=== PATIENT | female | born 1960 | race Two or more races ===

== ENCOUNTER 2017-04-01 02:29 | Inpatient (IN) | payer MEDICAID ==
[2017-04-01] VITALS (22 sets, daily range): BP systolic 98–184; BP diastolic 65–126
[~2017-04-01] VITALS: Ht 172.7 cm; Wt 129.3 kg
[2017-04-01] MEDS ORDERED: levETIRAcetam 500mg vial IV ONE ×2 (02:36→05:53)
[2017-04-01 02:44] LABS: BASOPHILS % (AUTO) 0.7 % (0.0-2.0); EOSINOPHILS % (AUTO) 0.5 % (0.0-3.0); LYMPHOCYTES % (AUTO) 37.5 % (20.0-45.0); MEAN CORPUSCULAR HEMOGLOBIN 29.2 PG (27.0-31.0); MEAN CORPUSCULAR HGB CONC 31.9 G/DL (32.0-36.0); MEAN CORPUSCULAR VOLUME 91 FL (80-99); MEAN PLATELET VOLUME 8.7 FL (6.5-10.1); MONOCYTES % (AUTO) 4.4 % (1.0-10.0); NEUTROPHILS % (AUTO) 56.9 % (45.0-75.0); PLATELET COUNT 250 K/UL (150-450); RED BLOOD COUNT 5.39 M/UL (4.20-5.40); RED CELL DISTRIBUTION WIDTH 13.1 % (11.6-14.8); WHITE BLOOD COUNT 15.3 K/UL (4.8-10.8)
[2017-04-01] MEDS ORDERED: levETIRAcetam 500 MG in D5W 110 ML IV ONE (02:45)
[2017-04-01] MEDS ORDERED: LORazepam Inj 2mg/ml 1ml IV ONE ×2 (02:45→05:15)
[2017-04-01 02:58] LABS: ANION GAP 8 mmol/L (5-15); CALCIUM 8.9 MG/DL (8.5-10.1); CARBON DIOXIDE 31 MMOL/L (21-32); CHLORIDE 101 MMOL/L (98-107); CREATININE 1.1 MG/DL (0.55-1.30); GLOMERULAR FILTRATION RATE 51.2 mL/min (>60); POTASSIUM 3.3 MMOL/L (3.5-5.1); SODIUM 140 MMOL/L (136-145)
[2017-04-01 03:02] LABS: ALANINE AMINOTRANSFERASE 42 U/L (12-78); ASPARTATE AMINO TRANSFERASE 40 U/L (15-37); TOTAL PROTEIN 8.5 G/DL (6.4-8.2)
[2017-04-01 03:07] LABS: ALCOHOL < 3 mg/dL
[2017-04-01 03:09] LABS: APPEARANCE,URINE CLEAR; KETONES,URINE NEGATIVE (NEGATIVE); LEUKOCYTE ESTERASE ,URINE 1+ (NEGATIVE); NITRITE,URINE NEGATIVE (NEGATIVE); PH,URINE 7 (4.5-8.0); PROTEIN,URINE 4+ (NEGATIVE); UROBILINOGEN,URINE NORMAL MG/DL (0.0-1.0)
[2017-04-01 03:10] LABS: BACTERIA,URINE MODERATE /HPF; SQUAMOUS EPITHELIAL CELL,UR FEW /LPF (NONE/OCC)
[2017-04-01 03:11] LABS: MUCUS,URINE MODERATE /LPF (NONE/OCC)
[2017-04-01] MEDS ORDERED: Labetalol 5mg/ml 20ml vial IV ONE (03:43)
[2017-04-01] MEDS ORDERED: cefTRIAXone 1 GM in NS 55 ML IVPB ONE (03:45)
[2017-04-01] MEDS ORDERED: niCARdipine HCl 200 ML IV SCH (03:45)
--- NOTE | 2017-04-01 04:23 | Emergency Room Report ---
History of Present Illness General Chief Complaint: Seizure Source: Family Member, EMS Present Illness HPI This is a 56-year-old female with a history of CVA and hypertension. Initially she presents as a seizure. Per EMS she has a history of seizure before. And noted to have a seizure activity tonight. Family called 911. Initially, there was no family member to give her better detail history. Patient unable to give a history because of her condition. I finally spoke to her daughter on the phone. She said that her mom had a history of hemorrhagic stroke said it high blood pressure before. She doesn't take her blood pressure medication as indicated. Today, she left the house around 3:45 PM. Her mom had been complaining of feeling weak and not feeling well. She was sitting on the couch talking normally. Her daughter came home around 1:45 AM. She called her mom but there was no response. When she opened the door she fell her mom on the floor by the couch. There was vomit on the couch and her mom and incontinence of urine. She was having at the mouth. She was groaning and there was some twitching. No obvious tonic-clonic seizure activity. Allergies: Coded Allergies: PENICILLINS (Verified Allergy, Unknown, 04/01/17) Patient History Past Medical History: see triage record, old chart reviewed, HTN, CAD Past Surgical History: CABG Pertinent Family History: none Social History: Denies: smoking Last Menstrual Period: unknown Now: No Immunizations: other Reviewed Nursing Documentation: PMH: Agreed, PSxH: Agreed Nursing Documentation-PMH Hx Cardiac Problems: Yes - Stroke Hx Hypertension: Yes Hx Asthma: Yes Hx Diabetes: Yes Hx Seizures: Yes Review of Systems Constitutional: Reports: weakness Eye: Denies: eye pain, blurred vision ENT: Denies: ear pain, nose congestion, throat swelling Respiratory: Denies: cough, shortness of breath Cardiovascular: Denies: chest pain, palpitations Gastrointestinal: Denies: abdominal pain, diarrhea, nausea, vomiting Musculoskeletal: Denies: back pain, joint pain Skin: Denies: rash Neurological: Reports: headache Endocrine: Denies: increased thirst, increased urine Hematologic/Lymphatic: Denies: easy bruising All Other Systems: negative except mentioned in HPI Physical Exam Vital Signs Date Time Temp Pulse Resp B/P (MAP) Pulse Ox O2 Delivery O2 Flow Rate FiO2 04/01/17 02:20 97.5 128 11 192/145 99 Non-Rebreather 15.0 vitals with tachycardia and severe hypertension. Sp02 EP Interpretation: abnormal General Appearance: moderate distress Head: normocephalic, atraumatic Eyes: bilateral eye PERRL, bilateral eye EOMI ENT: normal pharynx Neck: full range of motion, supple, no meningismus Respiratory: chest non-tender, lungs clear, normal breath sounds Cardiovascular #1: regular rate, rhythm, no murmur, tachycardia Gastrointestinal: normal bowel sounds, non tender, no mass, no organomegaly, no bruit, non-distended Musculoskeletal: back normal Neurologic: other - No response to painful stimuli. Patient has some twitching of the left nasal labial folds. Skin: warm/dry Procedures Critical Care Time Critical Care Time Critical care is mandated in this patient who presented with acute encephalopathy most likely se CVA in or intracranial bleed.. Patient require my urgent intervention to attenuate the risks of metabolic collapse which may lead to cardiovascular collapse and . Critical care time is 35 minutes excluding any reportable procedure. Critical care time included evaluation, multiple reevaluation, looking at old charts, interpreting laboratory and diagnostic data, discussing case with patient and family and consultants, and charting. Medical Decision Making Diagnostic Impression: Primary Impression: Hypertensive emergency Additional Impressions: Acute encephalopathy Morbid obesity with BMI of 45.0-49.9, adult UTI (urinary tract infection) Qualified Codes: N30.00 - Acute cystitis without hematuria Proteinuria Qualified Codes: R80.9 - Proteinuria, unspecified CVA (cerebral vascular accident) Qualified Codes: I63.9 - Cerebral infarction, unspecified ER Course Patient presents with acute encephalopathy. She may have had a CVA. Questionable UTI. We'll go ahead and treat for that. No evidence of CHF. No obvious bleed on the CT scan. She is outside of the window for TPA. Last known time she was 3:45 PM. This per her outside the window for TPA. I gave her a dose of Ativan for possible seizure. Positive of Keppra. Her daughter she had "seizure" before. Blood pressure also improved to 175/54. At this moment in time, is protecting her airway. I see no need for intubation at this point. She'll be admitted to the ICU for further management. She is unstable for transfer. Laboratory Tests Test 04/01/17 02:30 04/01/17 02:50 White Blood Count 15.3 K/UL (4.8-10.8) H Red Blood Count 5.39 M/UL (4.20-5.40) Hemoglobin 15.7 G/DL (12.0-16.0) Hematocrit 49.3 % (37.0-47.0) H Mean Corpuscular Volume 91 FL (80-99) Mean Corpuscular Hemoglobin 29.2 PG (27.0-31.0) Mean Corpuscular Hemoglobin Concent 31.9 G/DL (32.0-36.0) L Red Cell Distribution Width 13.1 % (11.6-14.8) Platelet Count 250 K/UL (150-450) Mean Platelet Volume 8.7 FL (6.5-10.1) Neutrophils (%) (Auto) 56.9 % (45.0-75.0) Lymphocytes (%) (Auto) 37.5 % (20.0-45.0) Monocytes (%) (Auto) 4.4 % (1.0-10.0) Eosinophils (%) (Auto) 0.5 % (0.0-3.0) Basophils (%) (Auto) 0.7 % (0.0-2.0) Sodium Level 140 MMOL/L (136-145) Potassium Level 3.3 MMOL/L (3.5-5.1) L Chloride Level 101 MMOL/L (98-107) Carbon Dioxide Level 31 MMOL/L (21-32) Anion Gap 8 mmol/L (5-15) Blood Urea Nitrogen 20 mg/dL (7-18) H Creatinine 1.1 MG/DL (0.55-1.30) Estimat Glomerular Filtration Rate 51.2 mL/min (>60) Glucose Level 276 MG/DL (74-106) H Calcium Level 8.9 MG/DL (8.5-10.1) Total Bilirubin 0.6 MG/DL (0.2-1.0) Aspartate Amino Transf (AST/SGOT) 40 U/L (15-37) H Alanine Aminotransferase (ALT/SGPT) 42 U/L (12-78) Alkaline Phosphatase 158 U/L (46-116) H Total Protein 8.5 G/DL (6.4-8.2) H Albumin 4.2 G/DL (3.4-5.0) Globulin 4.3 g/dL Albumin/Globulin Ratio 1.0 (1.0-2.7) Serum Alcohol < 3 mg/dL Urine Color Pale yellow Urine Appearance Clear Urine pH 7 (4.5-8.0) Urine Specific [place] 1.010 (1.005-1.035) Urine Protein 4+ (NEGATIVE) H Urine Glucose (UA) 3+ (NEGATIVE) H Urine Ketones Negative (NEGATIVE) Urine Occult Blood 2+ (NEGATIVE) H Urine Nitrite Negative (NEGATIVE) Urine Bilirubin Negative (NEGATIVE) Urine Urobilinogen Normal MG/DL (0.0-1.0) Urine Leukocyte Esterase 1+ (NEGATIVE) H Urine RBC 2-4 /HPF (0 - 2) H Urine WBC 5-10 /HPF (0 - 2) H Urine Squamous Epithelial Cells Few /LPF (NONE/OCC) Urine Bacteria Moderate /HPF (NONE) H Urine Mucus Moderate /LPF (NONE/OCC) H Urine Opiates Screen Negative (NEGATIVE) Urine Barbiturates Screen Negative (NEGATIVE) Phencyclidine (PCP) Screen Negative (NEGATIVE) Urine Amphetamines Screen Negative (NEGATIVE) Urine Benzodiazepines Screen Negative (NEGATIVE) Urine Cocaine Screen Negative (NEGATIVE) Urine Marijuana (THC) Screen Positive (NEGATIVE) H Lab Results Impression labs with elevated WBC EKG Diagnostic Results Rate: tachycardiac Rhythm: NSR ST Segments: other - NSST changes Rhythm Strip Diag. Results Rhythm Strip Time: 04:21 EP Interpretation: yes Rate: 92 Rhythm: NSR, no PVC's Chest X-Ray Diagnostic Results Chest X-Ray Diagnostic Results : Chest X-Ray Ordered: Yes # of Views/Limited/Complete: 1 View Indication: Shortness of Breath EP Interpretation: Yes Interpretation: no consolidation, no effusion, no pneumothorax, no acute cardiopulmonary disease Impression: No acute disease CT/MRI/US Diagnostic Results CT/MRI/US Diagnostic Results : Imaging Test Ordered: CT head Impression Read by radiologist. no ICH. Moderate hypodensity Last Vital Signs Date Time Temp Pulse Resp B/P (MAP) Pulse Ox O2 Delivery O2 Flow Rate FiO2 04/01/17 04:01 97.5 117 16 163/114 100 Non-Rebreather 15.0 Status: improved Disposition: ADMITTED INPATIENT Condition: Critical Referrals: NON PHYSICIAN (PCP) MANAS ALICEA M.D. Apr 01, 2017 04:23
[2017-04-01] MEDS ORDERED: NKM (05:34)
[2017-04-01] MEDS ORDERED: levETIRAcetam 500mg/NS100ml 100 ML IVPB ONE (06:00)
[2017-04-01] MEDS ORDERED: TENORMIN25 MG ORAL (08:16)
[2017-04-01] MEDS ORDERED: LISINOPRIL20 MG ORAL (08:16)
[2017-04-01] MEDS ORDERED: BENAZEPRIL-HCT1 EAC1 ORAL (08:16)
[2017-04-01] MEDS ORDERED: NORVASC5 MG ORAL (08:16)
--- NOTE | 2017-04-01 10:19 | Diagnostic Imaging Report ---
Indications: Altered metal status Technique: Spiral acquisitions obtained through the brain. Angled axial and coronal 5 x 5 mm slices were reconstructed. Total dose length product 1404 mGycm. CTDI vol(s) 70 mGy. Dose reduction achieved using automated exposure control Comparison: None Findings: No acute intracranial hemorrhage or edema. No mass effect or midline shift. Normal size ventricles and extra-axial CSF spaces. There is considerable periventricular deep white matter low-attenuation as well there is a low-attenuation within the bilateral basal ganglia regions. Multiple bilateral basal ganglia lacunar infarcts are demonstrated. Intact calvarium. Visualized orbits are unremarkable. There is minimal sphenoid sinus disease. Impression: Negative for acute intracranial bleed or mass effect Fairly extensive periventricular and basal ganglia deep white matter low-attenuation. Most likely on the basis of chronic microvascular ischemic changes. However, given patient's age and absence of significant cerebral volume loss, the possibility of demyelinating disease should also be considered Old bilateral basal ganglia lacunar infarcts This agrees with the preliminary interpretation provided overnight by [facility]erad[facility] service. The CT scanner at [facility] is accredited by the [employer] and the scans are performed using protocols designed to limit radiation exposure to as low as reasonably achievable to attain images of sufficient resolution adequate for diagnostic evaluation.
--- NOTE | 2017-04-01 10:59 | Consultation ---
Consult Note Consult Note asked to eval for BP management This is a 56-year-old female with a history of CVA and hypertension. Initially she presents as a seizure. Per EMS she has a history of seizure before. And noted to have a seizure activity tonight. Family called 911. Initially, there was no family member to give her better detail history. Patient unable to give a history because of her condition. I finally spoke to her daughter on the phone. She said that her mom had a history of hemorrhagic stroke said it high blood pressure before. She doesn't take her blood pressure medication as indicated. Today, she left the house around 3:45 PM. Her mom had been complaining of feeling weak and not feeling well. She was sitting on the couch talking normally. Her daughter came home around 1:45 AM. She called her mom but there was no response. When she opened the door she fell her mom on the floor by the couch. There was vomit on the couch and her mom and incontinence of urine. She was having at the mouth. She was groaning and there was some twitching. No obvious tonic-clonic seizure activity. Allergies: Coded Allergies: PENICILLINS (Verified Allergy, Unknown, 04/01/17) Past Medical History: see triage record, old chart reviewed, HTN, CAD Past Surgical History: CABG Hx Cardiac Problems: Yes - Stroke Hx Hypertension: Yes Hx Asthma: Yes Hx Diabetes: Yes Hx Seizures: Yes Assessment/Plan Hypertensive emergency Acute encephalopathy Morbid obesity with BMI of 45.0-49.9, adult UTI (urinary tract infection) Proteinuria CVA (cerebral vascular accident) in view of acute stroke, do not want BP lower than 150 syst for next few days NGT PRN BP Meds per orders discussed with CED MCKINNEY Apr 01, 2017 10:59
[2017-04-01] MEDS ORDERED: Enalaprilat 2.5mg/2ml Inj IV ONE (11:00)
[2017-04-01] MEDS ORDERED: Metoprolol Tartrate 12.5mg TAB NG ONE (11:30)
--- NOTE | 2017-04-01 11:31 | Diagnostic Imaging Report ---
Indication: Altered level of consciousness, history of multiple prior CVA and cerebral hemorrhages Technique: sagittal T1 fast spin echo, axial T1 and T2 FLAIR, axial T2 FS, T2* GRE, axial diffusion weighted images, coronal T2 FLAIR, coronal spoiled gradient, post contrast axial and coronal T1 FLAIR images. ADC and exponential ADC maps generated. Note that due to patient body habitus, the "old" head coil needed to be utilized Comparison: Reference made to CT scan performed earlier the same day Findings: Motion artifact degrades numerous sequences. There is a tiny focus of restricted diffusion within the right parietal deep white matter, and equivocally within the right frontal deep white matter. Questionable restricted diffusion in the left parasagittal parietal lobe also noted. There are questionable foci of restricted diffusion also noted in the [place]. In the medial parasagittal left parietal lobe, there is low GRE signal as well as low signal on other sequences corresponding area of low attenuation seen on prior CT scan, likely an area of encephalomalacia with old hemorrhage. There are other scattered foci of susceptibility artifact within the midbrain, bilateral basal ganglia, and the left hemisphere. Susceptibility artifact in the subependymal region adjacent to the atrium the right lateral ventricle There are old bilateral basal ganglia lacunar infarcts, as well as an old lacunar infarct within the junction of the right brachium pontis and cerebellar hemisphere. High T2 signal abnormality are seen within the kay[place] and midbrain which are probably related to prior ischemia. Confluent deep white matter areas of high T2 signal are noted, corresponding to the low attenuation areas seen on CT. No mass effect nor midline shift. Considerable motion artifact degrades the postcontrast images. No gross contrast enhancing lesion is demonstrated. Normal size ventricles and extra axial CSF spaces. Visualized orbits and sinuses are unremarkable. The hippocampi are grossly symmetrical bilaterally. The vascular flow voids are preserved. Impression: Limited exam, as described, due to motion artifact, inability to use newer head coil Focus of restricted diffusion in the right parietal deep white matter, consistent with acute infarct. Less striking foci of restricted diffusion in the right frontal lobe, left parasagittal parietal lobe, right basal ganglia, and the kay[place] and midbrain. Possibly artifactual, but could represent multiple small acute lacunar infarcts. If so, distribution indicates embolic phenomena of cardiac origin Area of encephalomalacia in the left parasagittal parietal lobe, with associated susceptibility artifact consistent with old hemorrhagic infarct Subependymal and parenchymal area of susceptibility artifact adjacent to the atrium in the right lateral ventricle, consistent with old hemorrhage Multiple scattered punctate foci of susceptibility artifact, consistent with old microhemorrhages.. Main differential considerations are chronic hypertensive encephalopathy with microbleeds, versus amyloid angiopathy Cerebral volume loss, presumed age-related Extensive bilateral periventricular high T2 deep white matter abnormality, consistent with chronic ischemic change, less likely demyelinating disease Findings discussed by phone previously with Dr. Thomas
--- NOTE | 2017-04-01 11:49 | Neurology Progress Note ---
Objective Physical Exam Last Vital Signs Date Time Temp Pulse Resp B/P (MAP) Pulse Ox O2 Delivery O2 Flow Rate FiO2 04/01/17 11:39 109 149/97 04/01/17 10:00 20 100 Nasal Cannula 3.0 04/01/17 08:00 99.7 Laboratory Tests Test 04/01/17 02:30 04/01/17 02:50 White Blood Count 15.3 K/UL (4.8-10.8) H Red Blood Count 5.39 M/UL (4.20-5.40) Hemoglobin 15.7 G/DL (12.0-16.0) Hematocrit 49.3 % (37.0-47.0) H Mean Corpuscular Volume 91 FL (80-99) Mean Corpuscular Hemoglobin 29.2 PG (27.0-31.0) Mean Corpuscular Hemoglobin Concent 31.9 G/DL (32.0-36.0) L Red Cell Distribution Width 13.1 % (11.6-14.8) Platelet Count 250 K/UL (150-450) Mean Platelet Volume 8.7 FL (6.5-10.1) Neutrophils (%) (Auto) 56.9 % (45.0-75.0) Lymphocytes (%) (Auto) 37.5 % (20.0-45.0) Monocytes (%) (Auto) 4.4 % (1.0-10.0) Eosinophils (%) (Auto) 0.5 % (0.0-3.0) Basophils (%) (Auto) 0.7 % (0.0-2.0) Sodium Level 140 MMOL/L (136-145) Potassium Level 3.3 MMOL/L (3.5-5.1) L Chloride Level 101 MMOL/L (98-107) Carbon Dioxide Level 31 MMOL/L (21-32) Anion Gap 8 mmol/L (5-15) Blood Urea Nitrogen 20 mg/dL (7-18) H Creatinine 1.1 MG/DL (0.55-1.30) Estimat Glomerular Filtration Rate 51.2 mL/min (>60) Glucose Level 276 MG/DL (74-106) H Calcium Level 8.9 MG/DL (8.5-10.1) Total Bilirubin 0.6 MG/DL (0.2-1.0) Aspartate Amino Transf (AST/SGOT) 40 U/L (15-37) H Alanine Aminotransferase (ALT/SGPT) 42 U/L (12-78) Alkaline Phosphatase 158 U/L (46-116) H Total Protein 8.5 G/DL (6.4-8.2) H Albumin 4.2 G/DL (3.4-5.0) Globulin 4.3 g/dL Albumin/Globulin Ratio 1.0 (1.0-2.7) Serum Alcohol < 3 mg/dL Urine Color Pale yellow Urine Appearance Clear Urine pH 7 (4.5-8.0) Urine Specific [place] 1.010 (1.005-1.035) Urine Protein 4+ (NEGATIVE) H Urine Glucose (UA) 3+ (NEGATIVE) H Urine Ketones Negative (NEGATIVE) Urine Occult Blood 2+ (NEGATIVE) H Urine Nitrite Negative (NEGATIVE) Urine Bilirubin Negative (NEGATIVE) Urine Urobilinogen Normal MG/DL (0.0-1.0) Urine Leukocyte Esterase 1+ (NEGATIVE) H Urine RBC 2-4 /HPF (0 - 2) H Urine WBC 5-10 /HPF (0 - 2) H Urine Squamous Epithelial Cells Few /LPF (NONE/OCC) Urine Bacteria Moderate /HPF (NONE) H Urine Mucus Moderate /LPF (NONE/OCC) H Urine Opiates Screen Negative (NEGATIVE) Urine Barbiturates Screen Negative (NEGATIVE) Phencyclidine (PCP) Screen Negative (NEGATIVE) Urine Amphetamines Screen Negative (NEGATIVE) Urine Benzodiazepines Screen Negative (NEGATIVE) Urine Cocaine Screen Negative (NEGATIVE) Urine Marijuana (THC) Screen Positive (NEGATIVE) H Impression/Recommendations Problems: (1) acute ischemic R MCA lacunar stroke (2) Recurrent seizures (3) s/p old multiple hemorrhagic/ischemic strokes, probably HTN angiopathy (4) UTI (urinary tract infection) (5) Proteinuria (6) Hypertensive emergency Status: unchanged Recommendations # [id number] TWIN LEIVA Apr 01, 2017 11:49
[2017-04-01] MEDS ORDERED: Enalaprilat 2.5mg/2ml Inj IV SCH (12:00)
[2017-04-01] MEDS: Enalaprilat 2.5mg/2ml Inj IV SCH ×2 (12:00→18:00)
[2017-04-01] MEDS: levETIRAcetam 500mg/NS100ml 100 ML IVPB SCH ×2 (12:52→20:50)
--- NOTE | 2017-04-01 14:30 | Diagnostic Imaging Report ---
Indication: SOB Technique: One view of the chest Comparison: none Findings: Patient is rotated to the right. The aorta is tortuous and ectatic. There are are surgical clips in the left aorta pulmonary window region. There are median sternotomy sutures. No definite acute infiltrates, effusions, or congestion Impression: No definite acute process
--- NOTE | 2017-04-01 16:00 | Consultation ---
DATE OF CONSULTATION: 04/01/2017 NEUROLOGICAL CONSULTATION CONSULTING PHYSICIAN: Jose M Thomas M.D. REFERRING PHYSICIAN: Mark Hawkins M.D. HISTORY OF PRESENT ILLNESS: This is a 56-year-old female, seen in neurological consultation to evaluate new onset of unresponsiveness. According to the family as well as from medical records known that as of yesterday, she was doing fairly well. Last time, she was seen at around 3 or 4 o'clock p.m. She was doing fine except that she had some weakness attributed to tiredness from moving in to a new housing. When the family came by at around 1:40 a.m., the patient was found to be on the ground unresponsive. There was evidence of vomiting and urinary incontinence. There was foaming from her mouth. She was groaning and moaning and there was some twitchings. The patient was unresponsive. Ambulance was requested. Blood pressure in the field 245/166, heart rate of 129, respirations 18, and blood sugar 130. EKG with sinus tachycardia. She was described being able to withdraw to pain. No visible trauma noted. Family stated that they were trying to contact her since this morning, they came to visit and found her on the floor. Following admission to emergency room, her blood pressure still remained 192/145, temperature 97.5, heart rate of 128, and pulse oximetry 99% on non-rebreather. There was no response to painful stimulation. There was some twitching in the left nasolabial fold noted. Stat CT of the brain was obtained revealing no evidence of acute intracranial abnormalities. There was evidence of multiple old lacunar strokes. No midline shift. No hemorrhage. Her laboratory work included a CBC study with WBC 15.3. Chemistry panel, potassium 3.3, BUN of 20, and blood sugar 276. AST 40, alkaline phosphatase 158, and total protein 8.5. Toxicology panel positive for marijuana. Urinalysis, 5 to 10 WBCs, 3+ glucose, and 4+ protein. Since admission till present, there were no further paroxysmal events. The patient displayed slight improvement becoming somewhat more responsive to voice and being able to move her arms and legs. PAST MEDICAL HISTORY: Known that the patient has a history of at least five strokes within last five years, two of them hemorrhagic. She is treated for hypertension and diabetes type 2. She has a history of bronchial asthma. She is status post CABG with coronary artery disease. She had a single episode of seizure following acute stroke three years ago. No anticonvulsants were given. MRI of the brain without contrast was obtained on stat basis and this revealed what seems small lacunar acute infarct in the right parietal and questionable left parietal with multiple areas of old strokes including hemorrhagic, but no midline shift. No acute hemorrhage is noted. This was seen on preliminary assessment. MEDICATIONS: Treatment prior to admission included amlodipine, atenolol, benazepril, and lisinopril. ALLERGIES: Penicillin. FAMILY HISTORY: Noncontributory. SOCIAL HISTORY: Lives with her daughter, but described as being able to take care of herself and provide with herself with all activities of daily living. Family is unaware of any significant side effects from previous strokes. PHYSICAL EXAMINATION: GENERAL: A well-developed, moderately obese female, who is found to be lying in bed, at times spontaneously moving. VITAL SIGNS: Her blood pressure 171/60, temperature 99.7, and heart rate of 106. HEENT: Head normocephalic. There is no evidence of trauma. Eyes, ears, and throat are clear. NECK: Neck is slightly rigid. MUSCULOSKELETAL EXAMINATION: Unremarkable. There is no deformities. Peripheral pulses 1+ and symmetric. MENTAL STATUS: On loud voice or stimulation, she mumbles, but still not able to follow command. CRANIAL NERVE II: Pupils both responding to light and accommodation. There is a slight left eye exotropia, but range of motion on horizontal basis normal. Fundi poorly visualized. CRANIAL NERVE V: Normal corneal responses. CRANIAL NERVE VII: Minor facial asymmetry with drooping on the right. CRANIAL NERVES IX THROUGH XII: Tongue is in midline. Symmetric palate elevation. Slightly reduced gag. MOTOR EXAMINATION: Able to move both arms holding momentarily against the gravity. Less movement noted in both lower extremities, but withdrawing properly both legs. Deep tendon reflexes depressed bilaterally. Plantar response is mute. No pathological responses noted. SENSORY EXAM: No response to pin stimulation. IMPRESSION: 1. Acute lacunar ischemic right parietal stroke. 2. Status post multiple hemorrhagic/ischemic strokes. 3. Ischemic cerebrovascular disease, rule out hypertensive angiopathy. 4. Persistent unresponsiveness, probably postictal state. 5. Hypertensive emergency with acute encephalopathy. 6. Urinary tract infection. 7. Coronary artery disease, status post coronary artery bypass graft. 8. Diabetes type 2. DISCUSSION: The patient had abrupt onset of loss of consciousness most likely representing generalized seizure event triggered by acute lacunar stroke. In addition, the patient presents with a hypertensive emergency contributing to persistent unresponsiveness. The patient on admission was loaded with 1 g of Keppra. We will continue with 500 mg b.i.d. We will obtain electroencephalogram to rule out any ongoing seizure activity. We will maintain systolic blood pressure above 120 and below 160. Blood sugar should be well controlled to keep it below 115. Get PT, OT, and speech therapy to assess bedside swallow study. Meanwhile, keep NPO maintaining IV fluids. I discussed the patient's status with the family. One of the members of the family became extremely agitated (loudly shouting). Family is advised to maintain appropriate quietness at the bedside. They will help to hold the patient becoming agitated. We will follow with you. Thank you for allowing me to see this interesting patient in neurological consultation. Jose M Thomas M.D. DR: MUKUND JOB#: [id number] CC:
--- NOTE | 2017-04-01 17:45 | History and Physical Report ---
DATE OF ADMISSION: 04/01/2017 TIME SEEN: I saw the patient at around 7:25 a.m. at ICU. HISTORY OF PRESENT ILLNESS: I had already given orders prior to my visit to nurse as well. The patient is basically lethargic, however, does respond to noxious stimuli, groans, and moans. The history is obtained from the sister and the daughter here at the waiting room. According to the daughter, she left home at 3 a.m. and came back at 1 and found her on the floor. According to her, the patient was not completely unconscious, was mumbling and groaning, and was lying on her right side with some bruises on the right arm. According to again the daughter, the patient had not lost consciousness but was unable to get up. She has called paramedics to come here. There was noted again a bruise on the right side due to the fall. Again, the patient was mumbling. The patient according to the daughter has long history of drug abuse and history of noncompliance with her blood pressure medication. The patient had four strokes in the past and according to the daughter, she only had one time seizure and she was not put on any seizure medication per daughter. The patient admitted to ICU. The patient had originally elevated blood pressure, however, the blood pressure had improved and at the ICU, the blood pressure was 145 systolic. PAST MEDICAL HISTORY: Questionable seizure disorder, the daughter disputes and according to her, this only happened one time. History of CVA x4, history of drug abuse, history of hypertension, and history of diabetes. PAST SURGICAL HISTORY: Lung surgery. ALLERGIES: To penicillin. MEDICATIONS: Cannot tell us the name of the medications she takes and she is also noncompliant according to the daughter with her medications. SOCIAL HISTORY: The patient has history of smoking and history of drug abuse. FAMILY HISTORY: There is history of diabetes and hypertension in the family. REVIEW OF SYSTEMS: Unable to obtain. The patient is nonverbal, is mumbling, and responsive only to noxious stimuli and only mumbles. PHYSICAL EXAMINATION: VITAL SIGNS: Temperature 97.5, pulse was 125, and blood pressure 151/102. HEENT: Pupils are reactive to light. CHEST: Clear to auscultation. CARDIOVASCULAR: Tachycardic. No murmurs. GASTROINTESTINAL: Soft. Positive bowel sounds. Abdomen is nontender. There is also a mid chest wall scar which was due to the lung surgery that she had long time ago. EXTREMITIES: No edema. NEUROLOGIC: Reflexes on both sides, only responds to deep noxious stimuli, mumbles, and groans. Does not follow neurological exam. LABORATORY DATA: Sodium 140, potassium 3.3, chloride 101, BUN of 20, creatinine 1.1, glucose of 276. WBC of 15.3, hemoglobin 15.3, and platelets 215,000. ASSESSMENT: Altered mental status and lethargy, rule out another stroke. PLAN: Dr. Thomas was already notified by the ER doctor as well as by me to see the patient. I have also asked Dr. Jiménez, Dr. Watts, Dr. Montelongo, Dr. Horton, and Dr. Hawkins to see the patient for the above-mentioned diagnoses and treatment to rule out any infectious etiology causing leukocytosis as well as brining down her blood pressure and heart rate as well as bringing down her blood sugar. Consultation has been called. Dr. Jiménez also will help for replacement of the potassium. The patient is kept n.p.o. at this point. Dr. Thomas has been made aware as mentioned of this patient's admission by the ER doctor as well as by me. Mark Hawkins M.D. DR: NOEL JOB#: [id number] CC:
[2017-04-01 19:10] LABS: BAND NEUTROPHILS % (MANUAL) 2 % (0-8); BASOPHILS % (MANUAL) 0 % (0-2); EOSINOPHILS % (MANUAL) 2 % (0-3); LYMPHOCYTES % (MANUAL) 22 % (20-45); NEUTROPHILS % (MANUAL) 66 % (45-75); PLATELET ESTIMATE ADEQUATE; PLATELET MORPHOLOGY NORMAL; TOTAL CELLS COUNTED 100
[2017-04-01 19:11] LABS: PATH BLOOD SMEAR/OMC SENT TO PATHOLOGIST
--- NOTE | 2017-04-01 19:18 | General Progress Note ---
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 (4) Morbid obesity with BMI of 45.0-49.9, adult ICD Codes: E66.01 - Morbid (severe) obesity due to excess calories; Z68.42 - Body mass index (BMI) 45.0-49.9, adult SNOMED: 539614324, [id number] Assessment/Plan continue ICU care add Novolog sliding scale ac / hs Subjective ROS Limited/Unobtainable: Yes Allergies: Coded Allergies: PENICILLINS (Verified Allergy, Unknown, 04/01/17) Subjective events noted interval notes reviewed Objective Last 24 Hour Vital Signs Date Time Temp Pulse Resp B/P (MAP) Pulse Ox O2 Delivery O2 Flow Rate FiO2 04/01/17 19:00 106 19 120/80 100 Nasal Cannula 3.0 04/01/17 18:00 103 20 141/100 100 Nasal Cannula 3.0 04/01/17 18:00 141/100 04/01/17 17:00 114 20 124/89 100 Nasal Cannula 3.0 04/01/17 16:00 110 04/01/17 16:00 98.9 107 19 134/95 100 Nasal Cannula 3.0 04/01/17 15:00 104 20 143/94 100 Nasal Cannula 3.0 04/01/17 14:00 103 20 146/96 100 Nasal Cannula 3.0 04/01/17 13:00 104 20 156/103 100 Nasal Cannula 3.0 04/01/17 12:00 99.0 105 20 158/99 100 Nasal Cannula 3.0 04/01/17 12:00 105 04/01/17 11:39 109 149/97 04/01/17 11:23 171/60 04/01/17 11:00 104 20 157/97 100 Nasal Cannula 3.0 04/01/17 10:00 106 20 151/91 100 Nasal Cannula 3.0 04/01/17 09:00 119 20 149/86 100 Nasal Cannula 3.0 04/01/17 08:00 99.7 106 19 107/72 Nasal Cannula 2.0 04/01/17 08:00 112 12/6/17 07:00 113 20 145/97 100 Nasal Cannula 3.0 04/01/17 06:30 98.2 116 22 130/95 100 Nasal Cannula 3.0 04/01/17 06:01 97.5 130 22 145/81 100 Nasal Cannula 3.0 04/01/17 06:00 97.5 130 22 145/81 100 Nasal Cannula 3.0 04/01/17 04:52 97.5 125 22 151/102 100 Non-Rebreather 15.0 04/01/17 04:01 97.5 117 16 163/114 100 Non-Rebreather 15.0 04/01/17 03:59 163/114 04/01/17 03:13 97.5 126 12 184/126 98 Non-Rebreather 15.0 04/01/17 02:53 128 11 Non-Rebreather 15.0 04/01/17 02:20 97.5 128 11 192/145 99 Non-Rebreather 15.0 Intake and Output 04/01/17 04/02/17 19:00 07:00 Intake Total 100 ml Output Total 770 ml Balance -670 ml Intake IV Total 100 ml Output Urine Total 770 ml Laboratory Tests 04/01/17 02:30: White Blood Count 15.3H, Red Blood Count 5.39, Hemoglobin 15.7, Hematocrit 49.3H , Mean Corpuscular Volume 91, Mean Corpuscular Hemoglobin 29.2, Mean Corpuscular Hemoglobin Concent 31.9L, Red Cell Distribution Width 13.1, Platelet Count 250, Mean Platelet Volume 8.7, Neutrophils (%) (Auto) 56.9, Lymphocytes (%) (Auto) 37.5, Monocytes (%) (Auto) 4.4, Eosinophils (%) (Auto) 0.5, Basophils (%) (Auto) 0.7, Differential Total Cells Counted 100, Neutrophils % (Manual) 66, Lymphocytes % (Manual) 22, Monocytes % (Manual) 8, Eosinophils % (Manual) 2, Basophils % (Manual) 0, Band Neutrophils 2, Platelet Estimate Adequate, Platelet Morphology Normal, Red Blood Cell Morphology Normal , Sodium Level 140, Potassium Level 3.3L, Chloride Level 101, Carbon Dioxide Level 31, Anion Gap 8, Blood Urea Nitrogen 20H, Creatinine 1.1, Estimat Glomerular Filtration Rate 51.2, Glucose Level 276H, Calcium Level 8.9, Total Bilirubin 0.6, Aspartate Amino Transf (AST/SGOT) 40H, Alanine Aminotransferase ( ALT/SGPT) 42, Alkaline Phosphatase 158H, Total Protein 8.5H, Albumin 4.2, Globulin 4.3, Albumin/Globulin Ratio 1.0, Serum Alcohol < 3 04/01/17 02:50: Urine Color Pale yellow, Urine Appearance Clear, Urine pH 7, Urine Specific [place] 1.010, Urine Protein 4+H, Urine Glucose (UA) 3+H, Urine Ketones Negative , Urine Occult Blood 2+H, Urine Nitrite Negative, Urine Bilirubin Negative, Urine Urobilinogen Normal, Urine Leukocyte Esterase 1+H, Urine RBC 2-4H, Urine WBC 5-10H, Urine Squamous Epithelial Cells Few, Urine Bacteria ModerateH, Urine Mucus ModerateH, Urine Opiates Screen Negative, Urine Barbiturates Screen Negative, Phencyclidine (PCP) Screen Negative, Urine Amphetamines Screen Negative, Urine Benzodiazepines Screen Negative, Urine Cocaine Screen Negative, Urine Marijuana (THC) Screen PositiveH Height (Feet): 5 Height (Inches): 8.00 Weight (Pounds): 300 General Appearance: lethargic Neck: normal alignment Cardiovascular: normal rate Respiratory/Chest: lungs clear Abdomen: normal bowel sounds Edema: 1+ Arm (L), 1+ Arm (R), 1+ Leg (L), 1+ Leg (R), 1+ Pedal (L), 1+ Pedal ( R), 1+ Generalized Objective Current Medications Medications (Trade) Dose Ordered Sig/Svetlana Route PRN Reason Start Time Stop Time Status Last Admin Dose Admin Acetaminophen (Tylenol) 650 mg Q4H PRN ORAL Mild Pain/Temp > 100.5 04/01/17 07:00 05/01/17 06:59 Ceftriaxone Sodium 1 gm/ Dextrose 55 ml @ 110 mls/hr Q24H IVPB 04/02/17 08:15 04/09/17 08:14 Enalaprilat (Vasotec) 2.5 mg EVERY 6 HOURS IV 04/01/17 12:00 05/01/17 11:59 Famotidine (Pepcid I.v.) 20 mg Q12HR IVP 04/01/17 21:00 05/01/17 20:59 Levetiracetam 100 ml @ 400 mls/hr Q12HR IVPB 04/01/17 12:30 05/01/17 12:29 04/01/17 12:52 Metoprolol Tartrate (Lopressor) 12.5 mg Q12HR NG 04/01/17 21:00 05/01/17 20:59 Item Value Date Time Bedside Blood Glucose 129 mg/dl H 04/01/17 1630 Bedside Blood Glucose 109 mg/dl 04/01/17 1130 MANAS JARAMILLO Apr 01, 2017 19:18
--- NOTE | 2017-04-01 20:15 | Consultation ---
DATE OF CONSULTATION: 04/01/2017 INFECTIOUS DISEASES CONSULTATION PRIMARY ATTENDING: Mark Hawkins M.D. REASON FOR CONSULTATION: Leukocytosis and systemic inflammatory response syndrome. HISTORY OF PRESENT ILLNESS: A 56-year-old female admitted this morning. She was found unconscious on the floor near the bed last night. She had a seizure activity at the time of admission and suspected to have a stroke, leukocytosis, and tachycardia. PAST MEDICAL HISTORY: Significant for diabetes mellitus for many years. The patient had history of CVA five years ago that was hemorrhagic. She had good recovery of that CVA and have no symptoms except the slight memory loss. She has history of hypertension, morbid obesity, coronary artery disease and had history of coronary artery bypass. CURRENT MEDICATIONS: Getting famotidine, metoprolol, Keppra, Vasotec, Pepcid, and Tylenol. ALLERGIES: Allergic to penicillin, but got a dose of ceftriaxone in the ER and tolerated it. SOCIAL HISTORY: Lives at home. Single. She has one daughter, who is at bedside and provides the history. She has history of crack abuse that quit one year ago. Recent marijuana abuse. REVIEW OF SYSTEMS: Unobtainable, but according to nurse, she responds to noxious stimuli and removed NG tube. PHYSICAL EXAMINATION: VITAL SIGNS: Temperature 99.7 degrees, pulse 109, and blood pressure 149/97. GENERAL APPEARANCE: She is in no acute distress. HEAD AND NECK: She has O2 by nasal cannula. [place] conjunctiva. HEART: Tachycardic. LUNGS: Clear. ABDOMEN: Soft and nontender. EXTREMITIES: She has no edema. LABORATORY AND DIAGNOSTIC DATA: WBC 15.3, hemoglobin 15.7, hematocrit 49.3, and platelets 250. Sodium 140, potassium 3.3, chloride 101, bicarbonate 31, BUN 20, creatinine 1.1, and glucose 276. Alkaline phosphatase 158. Total protein is 8.5, elevated. Urine toxicology was positive for marijuana. MRI of the brain showed right parietal infarct that is acute and evidence of old infarct in left parietal area. IMPRESSION: 1. Systemic inflammatory response syndrome with leukocytosis and tachycardia most likely secondary to ischemic stroke. 2. Ischemic stroke in parietal area. 3. Diabetes mellitus. 4. Uncontrolled hypertension. 5. Obesity. 6. Coronary artery disease. RECOMMENDATION: We will continue with Rocephin to make sure the patient did not have any aspiration pneumonia. If remained stable, we will stop antibiotics soon. At the end of my exam, I thank Dr. Hawkins for involving me in the care of this patient. Yunior Mora M.D. DR: ePr JOB#: [id number] CC:
[2017-04-01] MEDS: Metoprolol Tartrate 12.5mg TAB NG SCH (20:51)
[2017-04-01] MEDS: NovoLOG Insulin Flexpen SUBQ SCH (20:52)
[2017-04-01] MEDS ORDERED: levETIRAcetam 500mg/NS100ml 100 ML IVPB SCH (21:00)
[2017-04-02] VITALS (16 sets, daily range): BP systolic 102–148; BP diastolic 57–106
[2017-04-02 05:09] LABS: BASOPHILS % (AUTO) 0.7 % (0.0-2.0); EOSINOPHILS % (AUTO) 0.1 % (0.0-3.0); LYMPHOCYTES % (AUTO) 23.4 % (20.0-45.0); MEAN CORPUSCULAR HEMOGLOBIN 28.8 PG (27.0-31.0); MEAN CORPUSCULAR VOLUME 90 FL (80-99); MONOCYTES % (AUTO) 6.6 % (1.0-10.0); NEUTROPHILS % (AUTO) 69.1 % (45.0-75.0); PLATELET COUNT 221 K/UL (150-450); RED BLOOD COUNT 5.21 M/UL (4.20-5.40); RED CELL DISTRIBUTION WIDTH 12.7 % (11.6-14.8); WHITE BLOOD COUNT 3.5 K/UL (4.8-10.8)
[2017-04-02] MEDS: Enalaprilat 2.5mg/2ml Inj IV SCH ×4 (06:00→18:00)
[2017-04-02 06:07] LABS: ALANINE AMINOTRANSFERASE 36 U/L (12-78); ALBUMIN/GLOBULIN RATIO 0.9 (1.0-2.7); ANION GAP 7 mmol/L (5-15); ASPARTATE AMINO TRANSFERASE 27 U/L (15-37); CALCIUM 8.9 MG/DL (8.5-10.1); CARBON DIOXIDE 28 MMOL/L (21-32); CHLORIDE 104 MMOL/L (98-107); CHOLESTEROL 191 MG/DL (< 200); CHOLESTEROL/HDL RATIO 3.7 (3.3-4.4); GLOMERULAR FILTRATION RATE 57.1 mL/min (>60); MAGNESIUM 1.7 MG/DL (1.8-2.4); PHOSPHORUS 2.6 MG/DL (2.5-4.9); POTASSIUM 3.5 MMOL/L (3.5-5.1); SODIUM 139 MMOL/L (136-145); THYROID STIMULATING HORMONE 0.402 uiU/mL (0.358-3.740); TOTAL PROTEIN 7.1 G/DL (6.4-8.2); URIC ACID 7.3 MG/DL (2.6-7.2)
[2017-04-02] MEDS: NovoLOG Insulin Flexpen SUBQ SCH ×4 (06:30→20:53)
[2017-04-02 06:53] LABS: HEMOGLOBIN A1C 7.1 % (4.3-6.0)
[2017-04-02 07:10] LABS: CRP QUANT 2.1 mg/dL (0.00-0.90)
[2017-04-02 07:12] LABS: AMMONIA 48 umol/L (11-32)
[2017-04-02] MEDS ORDERED: cefTRIAXone 1 GM in D5W 55 ML IVPB SCH (08:15)
--- NOTE | 2017-04-02 08:30 | Consultation ---
DATE OF CONSULTATION: 04/01/2017 HEMATOLOGY/ONCOLOGY CONSULTATION CONSULTING PHYSICIAN: Rikki Bañuelos M.D. REQUESTING PHYSICIAN: Mark Hawkins M.D. REASON FOR CONSULTATION: Evaluation of leukocytosis. IDENTIFYING DATA: Dear Dr. Hawkins, The patient is a 56-year-old female with a past medical history, which is significant for hypertension, history of at least five strokes in the past several years, hemorrhagic, history of bronchial asthma, history of CABG status post CAD, MRI has been completed and seems to be recurrent small lacunar artifact in the left parietal lobe assessment. The patient was noted to be unresponsive and has been seen by Neurology team and EEG has been ordered. The patient found on the ground unresponsive, ambulance requested. When she came in noted to be hypotensive, and currently blood pressure is better controlled. Due to her leukocytosis, hematology service was consulted. PAST MEDICAL HISTORY: Hemorrhagic stroke in the past, hypertension, CABG, and bronchial asthma. MEDICATIONS: Amlodipine, . ALLERGIES: Penicillin. FAMILY HISTORY: Noncontributory. SOCIAL HISTORY: Lives with her daughter. Family member reports the patient had prior stroke. REVIEW OF SYSTEMS: CONSULTATION: No fevers, chills, or night sweats. SKIN: No rashes, bumps, or itching. HEENT: No headache, hearing or vision changes. BREASTS: No lumps, pain, or discharge. PULMONARY: No cough, sputum, or shortness of breath. GASTROINTESTINAL: No nausea, vomiting, or diarrhea. GENITOURINARY: No dysuria, frequency, or urgency. MUSCULOSKELETAL: No joint swelling, muscle pain, or trauma. PHYSICAL EXAMINATION: VITAL SIGNS: Reviewed. GENERAL: No acute distress. PULMONARY: Decreased breath sounds. CARDIOVASCULAR: Regular rate. No S3 or S4. ABDOMEN: Soft and nontender. EXTREMITIES: There is 1+ edema. LABORATORY DATA: WBC of 15.3, hemoglobin 15.7, hematocrit , platelet count 250,000. ASSESSMENT AND RECOMMENDATIONS: 1. Leukocytosis, secondary to reactive process, concerning for potential infection versus reactive process potentially from an acute stroke. Continue to closely monitor. Peripheral smear to be obtained, rule out pathological issue. 2. Acute lacunar stroke, ischemic parietal stroke, has been seen by Neurology service. Continue to monitor. Getting PT, OT, and speech therapy. Bedside swallow evaluation as well as Keppra. 3. Hypertensive urgency. 4. Acute encephalopathy. 5. Urinary tract infection. 6. Coronary artery disease, status post coronary artery bypass graft. 7. Type 2 diabetes mellitus. 8. Cerebrovascular accident history in the past. Multiple strokes. Continue to closely monitor. Rikki Bañuelos M.D. DR: Lam JOB#: [id number] CC:
[2017-04-02] MEDS: Metoprolol Tartrate 12.5mg TAB NG SCH ×2 (09:00→20:52)
--- NOTE | 2017-04-02 09:05 | Infectious Diseases Prog Note ---
Assessment/Plan Assessment/Plan A; SIRS, leukocytosis resolved Acute CVA Seizure disorder DM type II CAD P; Discontinue Rocephin Observe off antibiotic Subjective ROS Limited/Unobtainable: No Constitutional: Reports: no symptoms Respiratory: Reports: no symptoms Gastrointestinal/Abdominal: Reports: no symptoms Genitourinary: Reports: no symptoms Neurologic: Reports: no symptoms Allergies: Coded Allergies: PENICILLINS (Verified Allergy, Unknown, 04/01/17) Objective Vital Signs Last 24 Hour Vital Signs Date Time Temp Pulse Resp B/P (MAP) Pulse Ox O2 Delivery O2 Flow Rate FiO2 04/02/17 08:00 76 04/02/17 08:00 98.5 85 20 136/95 99 Room Air 04/02/17 07:00 83 22 130/87 97 Room Air 04/02/17 06:00 84 20 131/80 97 Room Air 04/02/17 06:00 131/80 04/02/17 05:00 90 18 102/57 97 Room Air 04/02/17 04:00 93 04/02/17 04:00 98.6 93 18 104/63 98 Nasal Cannula 3.0 04/02/17 03:00 88 18 109/65 97 Nasal Cannula 3.0 04/02/17 02:00 91 18 111/75 98 Nasal Cannula 3.0 04/02/17 01:00 92 18 106/68 97 Nasal Cannula 3.0 04/02/17 00:00 98.5 94 20 102/70 97 Nasal Cannula 3.0 04/02/17 00:00 112/70 04/01/17 23:00 95 20 98/65 97 Nasal Cannula 3.0 04/01/17 22:00 98 21 122/79 97 Nasal Cannula 3.0 04/01/17 21:00 96 21 107/69 97 Nasal Cannula 3.0 04/01/17 20:51 97 119/76 04/01/17 20:11 98 Nasal Cannula 2.0 28 04/01/17 20:11 Nasal Cannula 2.0 28 04/01/17 20:00 101 04/01/17 20:00 98.2 101 23 110/77 96 Nasal Cannula 3.0 04/01/17 19:00 106 19 120/80 100 Nasal Cannula 3.0 04/01/17 18:00 103 20 141/100 100 Nasal Cannula 3.0 04/01/17 18:00 141/100 04/01/17 17:00 114 20 124/89 100 Nasal Cannula 3.0 04/01/17 16:00 110 04/01/17 16:00 98.9 107 19 134/95 100 Nasal Cannula 3.0 04/01/17 15:00 104 20 143/94 100 Nasal Cannula 3.0 04/01/17 14:00 103 20 146/96 100 Nasal Cannula 3.0 04/01/17 13:00 104 20 156/103 100 Nasal Cannula 3.0 04/01/17 12:00 99.0 105 20 158/99 100 Nasal Cannula 3.0 04/01/17 12:00 105 04/01/17 11:39 109 149/97 04/01/17 11:23 171/60 04/01/17 11:00 104 20 157/97 100 Nasal Cannula 3.0 04/01/17 10:00 106 20 151/91 100 Nasal Cannula 3.0 Height (Feet): 5 Height (Inches): 8.00 Weight (Pounds): 279 General Appearance: no acute distress HEENT: mucous membranes moist Respiratory/Chest: lungs clear Cardiovascular: normal rate Abdomen: soft, non tender Extremities: no edema Neurologic/Psychiatric: alert, oriented x 3, responsive Laboratory Tests Test 04/02/17 03:55 White Blood Count 3.5 K/UL (4.8-10.8) #L Red Blood Count 5.21 M/UL (4.20-5.40) Hemoglobin 15.0 G/DL (12.0-16.0) Hematocrit 46.9 % (37.0-47.0) Mean Corpuscular Volume 90 FL (80-99) Mean Corpuscular Hemoglobin 28.8 PG (27.0-31.0) Mean Corpuscular Hemoglobin Concent 32.0 G/DL (32.0-36.0) Red Cell Distribution Width 12.7 % (11.6-14.8) Platelet Count 221 K/UL (150-450) Mean Platelet Volume 8.0 FL (6.5-10.1) Neutrophils (%) (Auto) 69.1 % (45.0-75.0) Lymphocytes (%) (Auto) 23.4 % (20.0-45.0) Monocytes (%) (Auto) 6.6 % (1.0-10.0) Eosinophils (%) (Auto) 0.1 % (0.0-3.0) Basophils (%) (Auto) 0.7 % (0.0-2.0) Sodium Level 139 MMOL/L (136-145) Potassium Level 3.5 MMOL/L (3.5-5.1) Chloride Level 104 MMOL/L (98-107) Carbon Dioxide Level 28 MMOL/L (21-32) Anion Gap 7 mmol/L (5-15) Blood Urea Nitrogen 22 mg/dL (7-18) H Creatinine 1.0 MG/DL (0.55-1.30) Estimat Glomerular Filtration Rate 57.1 mL/min (>60) Glucose Level 143 MG/DL (74-106) #H Hemoglobin A1c 7.1 % (4.3-6.0) H Uric Acid 7.3 MG/DL (2.6-7.2) H Calcium Level 8.9 MG/DL (8.5-10.1) Phosphorus Level 2.6 MG/DL (2.5-4.9) Magnesium Level 1.7 MG/DL (1.8-2.4) L Total Bilirubin 0.6 MG/DL (0.2-1.0) Gamma Glutamyl Transpeptidase 97 U/L (5-85) H Aspartate Amino Transf (AST/SGOT) 27 U/L (15-37) Alanine Aminotransferase (ALT/SGPT) 36 U/L (12-78) Alkaline Phosphatase 126 U/L (46-116) H Ammonia 48 umol/L (11-32) H Total Creatine Kinase 181 U/L (26-308) Troponin I 1.331 ng/mL (0.000-0.056) C-Reactive Protein, Quantitative 2.1 mg/dL (0.00-0.90) H Pro-B-Type Natriuretic Peptide 6871 pg/mL (0-125) H Total Protein 7.1 G/DL (6.4-8.2) Albumin 3.3 G/DL (3.4-5.0) L Globulin 3.8 g/dL Albumin/Globulin Ratio 0.9 (1.0-2.7) L Triglycerides Level 88 MG/DL (30-150) Cholesterol Level 191 MG/DL (< 200) LDL Cholesterol 121 mg/dL (<100) H HDL Cholesterol 51 MG/DL (40-60) Cholesterol/HDL Ratio 3.7 (3.3-4.4) Thyroid Stimulating Hormone (TSH) 0.402 uiU/mL (0.358-3.740) Current Medications Medications (Trade) Dose Ordered Sig/Svetlana Route PRN Reason Start Time Stop Time Status Last Admin Dose Admin Acetaminophen (Tylenol) 650 mg Q4H PRN ORAL Mild Pain/Temp > 100.5 04/01/17 07:00 05/01/17 06:59 Ceftriaxone Sodium 1 gm/ Dextrose 55 ml @ 110 mls/hr Q24H IVPB 04/02/17 08:15 04/09/17 08:14 04/02/17 07:49 Dextrose (Dextrose 50%) STAT PRN IV Hypoglycemia 04/01/17 19:30 05/01/17 19:29 Enalaprilat (Vasotec) 2.5 mg EVERY 6 HOURS IV 04/01/17 12:00 05/01/17 11:59 Famotidine (Pepcid I.v.) 20 mg Q12HR IVP 04/01/17 21:00 05/01/17 20:59 04/01/17 20:50 Insulin Aspart (NovoLOG) BEFORE MEALS AND HS SUBQ 04/01/17 21:00 05/01/17 20:59 04/01/17 20:52 Levetiracetam 100 ml @ 400 mls/hr Q12HR IVPB 04/01/17 12:30 05/01/17 12:29 04/01/17 20:50 Metoprolol Tartrate (Lopressor) 12.5 mg Q12HR NG 04/01/17 21:00 05/01/17 20:59 JACKIE SALGUERO Apr 02, 2017 09:05
[2017-04-02] MEDS: levETIRAcetam 500mg/NS100ml 100 ML IVPB SCH (09:08)
--- NOTE | 2017-04-02 09:50 | Cardiology Progress Note ---
Assessment/Plan Assessment/Plan The patient is seen and examined, full consult note will be dictated shortly. Objective Last 24 Hour Vital Signs Date Time Temp Pulse Resp B/P (MAP) Pulse Ox O2 Delivery O2 Flow Rate FiO2 04/02/17 09:00 81 17 131/89 99 Room Air 04/02/17 09:00 75 131/89 04/02/17 08:00 76 04/02/17 08:00 98.5 85 20 136/95 99 Room Air 04/02/17 07:00 83 22 130/87 97 Room Air 04/02/17 06:00 84 20 131/80 97 Room Air 04/02/17 06:00 131/80 04/02/17 05:00 90 18 102/57 97 Room Air 04/02/17 04:00 93 04/02/17 04:00 98.6 93 18 104/63 98 Nasal Cannula 3.0 04/02/17 03:00 88 18 109/65 97 Nasal Cannula 3.0 04/02/17 02:00 91 18 111/75 98 Nasal Cannula 3.0 04/02/17 01:00 92 18 106/68 97 Nasal Cannula 3.0 04/02/17 00:00 98.5 94 20 102/70 97 Nasal Cannula 3.0 04/02/17 00:00 112/70 04/01/17 23:00 95 20 98/65 97 Nasal Cannula 3.0 04/01/17 22:00 98 21 122/79 97 Nasal Cannula 3.0 04/01/17 21:00 96 21 107/69 97 Nasal Cannula 3.0 04/01/17 20:51 97 119/76 04/01/17 20:11 98 Nasal Cannula 2.0 28 04/01/17 20:11 Nasal Cannula 2.0 28 04/01/17 20:00 101 04/01/17 20:00 98.2 101 23 110/77 96 Nasal Cannula 3.0 04/01/17 19:00 106 19 120/80 100 Nasal Cannula 3.0 04/01/17 18:00 103 20 141/100 100 Nasal Cannula 3.0 04/01/17 18:00 141/100 04/01/17 17:00 114 20 124/89 100 Nasal Cannula 3.0 04/01/17 16:00 110 04/01/17 16:00 98.9 107 19 134/95 100 Nasal Cannula 3.0 04/01/17 15:00 104 20 143/94 100 Nasal Cannula 3.0 04/01/17 14:00 103 20 146/96 100 Nasal Cannula 3.0 04/01/17 13:00 104 20 156/103 100 Nasal Cannula 3.0 04/01/17 12:00 99.0 105 20 158/99 100 Nasal Cannula 3.0 04/01/17 12:00 105 04/01/17 11:39 109 149/97 04/01/17 11:23 171/60 04/01/17 11:00 104 20 157/97 100 Nasal Cannula 3.0 04/01/17 10:00 106 20 151/91 100 Nasal Cannula 3.0 Intake and Output 04/02/17 04/03/17 19:00 07:00 Intake Total 55 ml Output Total 40 ml Balance 15 ml Intake Oral 0 ml IV Total 55 ml Output Urine Total 40 ml Laboratory Tests Test 04/02/17 03:55 White Blood Count 3.5 K/UL (4.8-10.8) #L Red Blood Count 5.21 M/UL (4.20-5.40) Hemoglobin 15.0 G/DL (12.0-16.0) Hematocrit 46.9 % (37.0-47.0) Mean Corpuscular Volume 90 FL (80-99) Mean Corpuscular Hemoglobin 28.8 PG (27.0-31.0) Mean Corpuscular Hemoglobin Concent 32.0 G/DL (32.0-36.0) Red Cell Distribution Width 12.7 % (11.6-14.8) Platelet Count 221 K/UL (150-450) Mean Platelet Volume 8.0 FL (6.5-10.1) Neutrophils (%) (Auto) 69.1 % (45.0-75.0) Lymphocytes (%) (Auto) 23.4 % (20.0-45.0) Monocytes (%) (Auto) 6.6 % (1.0-10.0) Eosinophils (%) (Auto) 0.1 % (0.0-3.0) Basophils (%) (Auto) 0.7 % (0.0-2.0) Sodium Level 139 MMOL/L (136-145) Potassium Level 3.5 MMOL/L (3.5-5.1) Chloride Level 104 MMOL/L (98-107) Carbon Dioxide Level 28 MMOL/L (21-32) Anion Gap 7 mmol/L (5-15) Blood Urea Nitrogen 22 mg/dL (7-18) H Creatinine 1.0 MG/DL (0.55-1.30) Estimat Glomerular Filtration Rate 57.1 mL/min (>60) Glucose Level 143 MG/DL (74-106) #H Hemoglobin A1c 7.1 % (4.3-6.0) H Uric Acid 7.3 MG/DL (2.6-7.2) H Calcium Level 8.9 MG/DL (8.5-10.1) Phosphorus Level 2.6 MG/DL (2.5-4.9) Magnesium Level 1.7 MG/DL (1.8-2.4) L Total Bilirubin 0.6 MG/DL (0.2-1.0) Gamma Glutamyl Transpeptidase 97 U/L (5-85) H Aspartate Amino Transf (AST/SGOT) 27 U/L (15-37) Alanine Aminotransferase (ALT/SGPT) 36 U/L (12-78) Alkaline Phosphatase 126 U/L (46-116) H Ammonia 48 umol/L (11-32) H Total Creatine Kinase 181 U/L (26-308) Troponin I 1.331 ng/mL (0.000-0.056) C-Reactive Protein, Quantitative 2.1 mg/dL (0.00-0.90) H Pro-B-Type Natriuretic Peptide 6871 pg/mL (0-125) H Total Protein 7.1 G/DL (6.4-8.2) Albumin 3.3 G/DL (3.4-5.0) L Globulin 3.8 g/dL Albumin/Globulin Ratio 0.9 (1.0-2.7) L Triglycerides Level 88 MG/DL (30-150) Cholesterol Level 191 MG/DL (< 200) LDL Cholesterol 121 mg/dL (<100) H HDL Cholesterol 51 MG/DL (40-60) Cholesterol/HDL Ratio 3.7 (3.3-4.4) Thyroid Stimulating Hormone (TSH) 0.402 uiU/mL (0.358-3.740) JESSICA NORTON Apr 02, 2017 09:50
--- NOTE | 2017-04-02 10:48 | General Progress Note ---
Assessment/Plan Assessment/Plan ASSESSMENT AND RECOMMENDATIONS: 1. Leukocytosis, secondary to SIRS, resolved. 2. Acute CVA, has been seen by Neurology service. Continue to monitor. Getting PT, OT, and speech therapy. 3. Hypertensive urgency. 4. Acute encephalopathy. 5. Urinary tract infection. 6. Coronary artery disease, status post coronary artery bypass graft. 7. Type 2 diabetes mellitus. Subjective Constitutional: Reports: malaise, weakness Allergies: Coded Allergies: PENICILLINS (Verified Allergy, Unknown, 04/01/17) All Systems: reviewed and negative except above Subjective drowsy Objective Last 24 Hour Vital Signs Date Time Temp Pulse Resp B/P (MAP) Pulse Ox O2 Delivery O2 Flow Rate FiO2 04/02/17 10:00 78 20 145/91 99 Room Air 04/02/17 09:00 81 17 131/89 99 Room Air 04/02/17 09:00 75 131/89 04/02/17 08:00 76 04/02/17 08:00 98.5 85 20 136/95 99 Room Air 04/02/17 07:00 83 22 130/87 97 Room Air 04/02/17 06:00 84 20 131/80 97 Room Air 04/02/17 06:00 131/80 04/02/17 05:00 90 18 102/57 97 Room Air 04/02/17 04:00 93 04/02/17 04:00 98.6 93 18 104/63 98 Nasal Cannula 3.0 04/02/17 03:00 88 18 109/65 97 Nasal Cannula 3.0 04/02/17 02:00 91 18 111/75 98 Nasal Cannula 3.0 04/02/17 01:00 92 18 106/68 97 Nasal Cannula 3.0 04/02/17 00:00 98.5 94 20 102/70 97 Nasal Cannula 3.0 04/02/17 00:00 112/70 04/01/17 23:00 95 20 98/65 97 Nasal Cannula 3.0 04/01/17 22:00 98 21 122/79 97 Nasal Cannula 3.0 04/01/17 21:00 96 21 107/69 97 Nasal Cannula 3.0 04/01/17 20:51 97 119/76 04/01/17 20:11 98 Nasal Cannula 2.0 28 04/01/17 20:11 Nasal Cannula 2.0 28 04/01/17 20:00 101 12/6/17 20:00 98.2 101 23 110/77 96 Nasal Cannula 3.0 04/01/17 19:00 106 19 120/80 100 Nasal Cannula 3.0 04/01/17 18:00 103 20 141/100 100 Nasal Cannula 3.0 04/01/17 18:00 141/100 04/01/17 17:00 114 20 124/89 100 Nasal Cannula 3.0 04/01/17 16:00 110 04/01/17 16:00 98.9 107 19 134/95 100 Nasal Cannula 3.0 04/01/17 15:00 104 20 143/94 100 Nasal Cannula 3.0 04/01/17 14:00 103 20 146/96 100 Nasal Cannula 3.0 04/01/17 13:00 104 20 156/103 100 Nasal Cannula 3.0 04/01/17 12:00 99.0 105 20 158/99 100 Nasal Cannula 3.0 04/01/17 12:00 105 04/01/17 11:39 109 149/97 04/01/17 11:23 171/60 04/01/17 11:00 104 20 157/97 100 Nasal Cannula 3.0 Intake and Output 04/02/17 04/03/17 19:00 07:00 Intake Total 155 ml Output Total 85 ml Balance 70 ml Intake Oral 0 ml IV Total 155 ml Output Urine Total 85 ml Laboratory Tests 04/02/17 03:55: White Blood Count 3.5#L, Red Blood Count 5.21, Hemoglobin 15.0, Hematocrit 46.9 , Mean Corpuscular Volume 90, Mean Corpuscular Hemoglobin 28.8, Mean Corpuscular Hemoglobin Concent 32.0, Red Cell Distribution Width 12.7, Platelet Count 221, Mean Platelet Volume 8.0, Neutrophils (%) (Auto) 69.1, Lymphocytes (% ) (Auto) 23.4, Monocytes (%) (Auto) 6.6, Eosinophils (%) (Auto) 0.1, Basophils ( %) (Auto) 0.7, Sodium Level 139, Potassium Level 3.5, Chloride Level 104, Carbon Dioxide Level 28, Anion Gap 7, Blood Urea Nitrogen 22H, Creatinine 1.0, Estimat Glomerular Filtration Rate 57.1, Glucose Level 143#H, Hemoglobin A1c 7.1H, Uric Acid 7.3H, Calcium Level 8.9, Phosphorus Level 2.6, Magnesium Level 1.7L, Total Bilirubin 0.6, Gamma Glutamyl Transpeptidase 97H, Aspartate Amino Transf (AST/SGOT) 27, Alanine Aminotransferase (ALT/SGPT) 36, Alkaline Phosphatase 126H, Ammonia 48H, Total Creatine Kinase 181, Troponin I 1.331H, C- Reactive Protein, Quantitative 2.1H, Pro-B-Type Natriuretic Peptide 6871H, Total Protein 7.1, Albumin 3.3L, Globulin 3.8, Albumin/Globulin Ratio 0.9L, Triglycerides Level 88, Cholesterol Level 191, LDL Cholesterol 121H, HDL Cholesterol 51, Cholesterol/HDL Ratio 3.7, Thyroid Stimulating Hormone (TSH) 0.402 Height (Feet): 5 Height (Inches): 8.00 Weight (Pounds): 279 General Appearance: no apparent distress EENT: normal ENT inspection Neck: normal alignment Cardiovascular: normal peripheral pulses Abdomen: non tender Extremities: non-tender Neurologic: sensory deficit Skin: normal pigmentation Rikki Bañuelos Apr 02, 2017 10:48
--- NOTE | 2017-04-02 12:28 | Nephrology Progress Note ---
Assessment/Plan Problem List: (1) Acute encephalopathy (2) Morbid obesity with BMI of 45.0-49.9, adult (3) Hypertensive emergency Assessment Hypertensive emergency Acute encephalopathy Morbid obesity with BMI of 45.0-49.9, adult UTI (urinary tract infection) Proteinuria CVA (cerebral vascular accident) acute Dm , high A1c high Troponin Plan NGT PRN BP Meds mag supplements per orders, per consultants discussed with RN Subjective ROS Limited/Unobtainable: No Constitutional: Reports: malaise, other - more responsive Objective Objective Last 24 Hour Vital Signs Date Time Temp Pulse Resp B/P (MAP) Pulse Ox O2 Delivery O2 Flow Rate FiO2 04/02/17 12:00 98.6 95 20 140/99 100 Room Air 04/02/17 12:00 140/99 04/02/17 11:00 85 19 132/86 100 Room Air 04/02/17 10:00 78 20 145/91 99 Room Air 04/02/17 09:00 81 17 131/89 99 Room Air 04/02/17 09:00 75 131/89 04/02/17 08:00 76 04/02/17 08:00 98.5 85 20 136/95 99 Room Air 04/02/17 07:00 83 22 130/87 97 Room Air 04/02/17 06:00 84 20 131/80 97 Room Air 04/02/17 06:00 131/80 04/02/17 05:00 90 18 102/57 97 Room Air 04/02/17 04:00 93 04/02/17 04:00 98.6 93 18 104/63 98 Nasal Cannula 3.0 04/02/17 03:00 88 18 109/65 97 Nasal Cannula 3.0 04/02/17 02:00 91 18 111/75 98 Nasal Cannula 3.0 04/02/17 01:00 92 18 106/68 97 Nasal Cannula 3.0 04/02/17 00:00 98.5 94 20 102/70 97 Nasal Cannula 3.0 04/02/17 00:00 112/70 04/01/17 23:00 95 20 98/65 97 Nasal Cannula 3.0 04/01/17 22:00 98 21 122/79 97 Nasal Cannula 3.0 04/01/17 21:00 96 21 107/69 97 Nasal Cannula 3.0 04/01/17 20:51 97 119/76 12/6/17 20:11 98 Nasal Cannula 2.0 28 04/01/17 20:11 Nasal Cannula 2.0 28 04/01/17 20:00 101 04/01/17 20:00 98.2 101 23 110/77 96 Nasal Cannula 3.0 04/01/17 19:00 106 19 120/80 100 Nasal Cannula 3.0 04/01/17 18:00 103 20 141/100 100 Nasal Cannula 3.0 04/01/17 18:00 141/100 04/01/17 17:00 114 20 124/89 100 Nasal Cannula 3.0 04/01/17 16:00 110 04/01/17 16:00 98.9 107 19 134/95 100 Nasal Cannula 3.0 04/01/17 15:00 104 20 143/94 100 Nasal Cannula 3.0 04/01/17 14:00 103 20 146/96 100 Nasal Cannula 3.0 04/01/17 13:00 104 20 156/103 100 Nasal Cannula 3.0 Intake and Output 04/02/17 04/03/17 19:00 07:00 Intake Total 155 ml Output Total 120 ml Balance 35 ml Intake Oral 0 ml IV Total 155 ml Output Urine Total 120 ml Laboratory Tests 04/02/17 03:55: White Blood Count 3.5#L, Red Blood Count 5.21, Hemoglobin 15.0, Hematocrit 46.9 , Mean Corpuscular Volume 90, Mean Corpuscular Hemoglobin 28.8, Mean Corpuscular Hemoglobin Concent 32.0, Red Cell Distribution Width 12.7, Platelet Count 221, Mean Platelet Volume 8.0, Neutrophils (%) (Auto) 69.1, Lymphocytes (% ) (Auto) 23.4, Monocytes (%) (Auto) 6.6, Eosinophils (%) (Auto) 0.1, Basophils ( %) (Auto) 0.7, Sodium Level 139, Potassium Level 3.5, Chloride Level 104, Carbon Dioxide Level 28, Anion Gap 7, Blood Urea Nitrogen 22H, Creatinine 1.0, Estimat Glomerular Filtration Rate 57.1, Glucose Level 143#H, Hemoglobin A1c 7.1H, Uric Acid 7.3H, Calcium Level 8.9, Phosphorus Level 2.6, Magnesium Level 1.7L, Total Bilirubin 0.6, Gamma Glutamyl Transpeptidase 97H, Aspartate Amino Transf (AST/SGOT) 27, Alanine Aminotransferase (ALT/SGPT) 36, Alkaline Phosphatase 126H, Ammonia 48H, Total Creatine Kinase 181, Troponin I 1.331H, C- Reactive Protein, Quantitative 2.1H, Pro-B-Type Natriuretic Peptide 6871H, Total Protein 7.1, Albumin 3.3L, Globulin 3.8, Albumin/Globulin Ratio 0.9L, Triglycerides Level 88, Cholesterol Level 191, LDL Cholesterol 121H, HDL Cholesterol 51, Cholesterol/HDL Ratio 3.7, Thyroid Stimulating Hormone (TSH) 0.402 04/02/17 10:30: Troponin I 1.325H Height (Feet): 5 Height (Inches): 8.00 Weight (Pounds): 279 General Appearance: no apparent distress, other - obese Cardiovascular: tachycardia Respiratory/Chest: decreased breath sounds Abdomen: soft CED HENRY Apr 02, 2017 12:28
[2017-04-02 12:29] LABS: OTHERS PATHOLOGIST COMMENT
--- NOTE | 2017-04-02 12:43 | Neurology Progress Note ---
Interim History Interim History ROS Limited/Unobtainable: No Complaints: feel ok admitting noncompliance Events: now awake EEG c/w encephaloparhy .L FP slowing Objective Physical Exam Last Vital Signs Date Time Temp Pulse Resp B/P (MAP) Pulse Ox O2 Delivery O2 Flow Rate FiO2 04/02/17 12:00 98.6 95 20 140/99 100 Room Air 04/02/17 04:00 3.0 04/01/17 20:11 28 Laboratory Tests Test 04/02/17 03:55 04/02/17 10:30 White Blood Count 3.5 K/UL (4.8-10.8) #L Red Blood Count 5.21 M/UL (4.20-5.40) Hemoglobin 15.0 G/DL (12.0-16.0) Hematocrit 46.9 % (37.0-47.0) Mean Corpuscular Volume 90 FL (80-99) Mean Corpuscular Hemoglobin 28.8 PG (27.0-31.0) Mean Corpuscular Hemoglobin Concent 32.0 G/DL (32.0-36.0) Red Cell Distribution Width 12.7 % (11.6-14.8) Platelet Count 221 K/UL (150-450) Mean Platelet Volume 8.0 FL (6.5-10.1) Neutrophils (%) (Auto) 69.1 % (45.0-75.0) Lymphocytes (%) (Auto) 23.4 % (20.0-45.0) Monocytes (%) (Auto) 6.6 % (1.0-10.0) Eosinophils (%) (Auto) 0.1 % (0.0-3.0) Basophils (%) (Auto) 0.7 % (0.0-2.0) Sodium Level 139 MMOL/L (136-145) Potassium Level 3.5 MMOL/L (3.5-5.1) Chloride Level 104 MMOL/L (98-107) Carbon Dioxide Level 28 MMOL/L (21-32) Anion Gap 7 mmol/L (5-15) Blood Urea Nitrogen 22 mg/dL (7-18) H Creatinine 1.0 MG/DL (0.55-1.30) Estimat Glomerular Filtration Rate 57.1 mL/min (>60) Glucose Level 143 MG/DL (74-106) #H Hemoglobin A1c 7.1 % (4.3-6.0) H Uric Acid 7.3 MG/DL (2.6-7.2) H Calcium Level 8.9 MG/DL (8.5-10.1) Phosphorus Level 2.6 MG/DL (2.5-4.9) Magnesium Level 1.7 MG/DL (1.8-2.4) L Total Bilirubin 0.6 MG/DL (0.2-1.0) Gamma Glutamyl Transpeptidase 97 U/L (5-85) H Aspartate Amino Transf (AST/SGOT) 27 U/L (15-37) Alanine Aminotransferase (ALT/SGPT) 36 U/L (12-78) Alkaline Phosphatase 126 U/L (46-116) H Ammonia 48 umol/L (11-32) H Total Creatine Kinase 181 U/L (26-308) Troponin I 1.331 ng/mL (0.000-0.056) 1.325 ng/mL (0.000-0.056) C-Reactive Protein, Quantitative 2.1 mg/dL (0.00-0.90) H Pro-B-Type Natriuretic Peptide 6871 pg/mL (0-125) H Total Protein 7.1 G/DL (6.4-8.2) Albumin 3.3 G/DL (3.4-5.0) L Globulin 3.8 g/dL Albumin/Globulin Ratio 0.9 (1.0-2.7) L Triglycerides Level 88 MG/DL (30-150) Cholesterol Level 191 MG/DL (< 200) LDL Cholesterol 121 mg/dL (<100) H HDL Cholesterol 51 MG/DL (40-60) Cholesterol/HDL Ratio 3.7 (3.3-4.4) Thyroid Stimulating Hormone (TSH) 0.402 uiU/mL (0.358-3.740) General: well developed, no acute distress, other - obese, sitting at bed edge Head: normocophalic, atraumatic Neck: no rigidity EENT: benign Neurologic Exam Mental Status: awake, alert, other - amnestic on Speech: normal speech, no dysarthia Language: normal language, no aphasia Cranial Nerve II: fundus normal, visual sutton, no papilledema Cranial Nerves III, IV, : EOMI, pupils Cranial Nerve V: normal facial sensations Cranial Nerve VII: normal facial expressions Cranial Nerve VIII: no nystagmus Cranial Nerve IX: gag response Cranial Nerve XI: trapezii function normal Cranial Nerve XII: no tongue atrophy/fasciculations Motor System: no involuntary movement, no muscle wasting Sensory: normal pinprick Coordination: negative Romberg test Deep Tendon Reflexes: 1+ bicep (L), 1+ bicep (R), 1+ tricep (L), 1+ tricep (R) , 1+ brachioradialis (L), 1+ brachioradialis (R), 1+ knee (L), 1+ knee (R), 1+ ankle (L), 1+ ankle (R) Reflexes: mute plantar (L), mute plantar (R) Gait: other - slow sl wabbly Impression/Recommendations Problems: (1) acute ischemic R MCA lacunar stroke (2) Recurrent seizures (3) s/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
--- NOTE | 2017-04-02 15:45 | Electroencephalogram ---
DATE OF PROCEDURE: 04/01/2017 ELECTROENCEPHALOGRAPHY REPORT REQUESTING PHYSICIAN: Mark Hawkins M.D. HISTORY: This is a 56-year-old female with acute right parietal lacunar stroke presented with persistent unresponsiveness following a single seizure episode. History of multiple strokes. TECHNIQUE: EEG was done using 18 electrodes placed scalp to scalp, scalp to ear montages according to 10/20 International System. Current treatment includes Keppra. During the recording, the patient described as being very sleepy, drowsy, poorly cooperative. Throughout the recording, background activity consists of a poorly organized low to medium voltage, mixture of 5-6 cycles per second with further slowing theta range 3-4 hertz over the left temporal frontal region. Briefly awakened by physical stimulation. Background activity revealed fast 6-7 cycles per second theta range activities bilaterally with slight slowing over the left temporal area. There was no spike and wave activities. Activation is limited to eye opening and eye closure. IMPRESSION: Abnormal electroencephalogram in presence of mild to moderate diffuse slowing predominantly over the left frontal temporal area. COMMENT: The above abnormality indicates a global cerebral dysfunction and probably underlying structural lesion in the left frontal temporal area. Absence of paroxysmal event on a single recording does not rule out seizure disorder. Jose M Thomas M.D. DR: NEHEMIAH JOB#: [id number] CC:
[2017-04-02] MEDS ORDERED: D5 1/2NS 1000ml IV ONE (15:59)
[2017-04-02] MEDS ORDERED: Tubing IV Secondary IV ONE (15:59)
[2017-04-02] MEDS ORDERED: NS 500ML ONE (15:59)
--- NOTE | 2017-04-02 16:52 | Cardiology Report ---
APPROVED REPORT EXAM: Two-dimensional and M-mode echocardiogram with Doppler and color Doppler. M-Mode DIMENSIONS IVSd1.1 (0.7-1.1cm)Left Atrium (MM)2.6 (1.6-4.0cm) LVDd5.2 (3.5-5.6cm)Aortic Root3.1 (2.0-3.7cm) PWd0.9 (0.7-1.1cm)Aortic Cusp Exc.2.1 (1.5-2.0cm) IVSs2.0 cm LVDs3.2 (2.5-4.0cm) PWs1.8 cm Technically difficult study due to poor acoustical windows. Normal left ventricular chamber size, systolic function and wall motion to extent visualized. Left ventricular ejection fraction estimated to be 60-65 %. Miod- severe left ventricular hypertrophy. No evidence of pericardial effusion Mild bi- atrial enlargement. Right ventricular chamber sizes is within normal limits. Focal aortic valve sclerosis with adequate cusp excursion. Thickened mitral valve leaflets with normal excursion. Mitral annulus and aortic root calcification. Pulmonic valve not well visualized. Normal tricuspid valve structure. IVC at 2.1 cm with slight physiologic collapse . A color flow and spectral Doppler study was performed and revealed: No aortic regurgitation. trace mitral regurgitation. Mild tricuspid regurgitation. Tricuspid systolic velocities suggest peak right ventricular systolic pressure of 35 mmHg, consistent with mild pulmonary hypertension. No Pulmonic regurgitation present.
--- NOTE | 2017-04-02 17:02 | Cardiology Report ---
APPROVED REPORT EKG Measurement Heart [id number] Sinus tachycardia Otherwise normal ECG
--- NOTE | 2017-04-02 17:15 | Consultation ---
DATE OF CONSULTATION: 04/02/2017 CARDIOLOGY CONSULTATION CONSULTING PHYSICIAN: Karl Horton M.D. REFERRING PHYSICIAN: Mark Hawkins M.D. REASON FOR CONSULTATION: Management of elevated troponin level. HISTORY OF PRESENT ILLNESS: The patient is a very unfortunate 56-year-old female, who has history of cerebrovascular accident, which was believed to be hemorrhagic with history of hypertension, noncompliant with medications. Apparently, the patient was found down by her daughter. At the time of arrival of daughter, her mom was nonresponsive and 911 was called. There was some evidence of vomited material on the couch where her mom was found. There was also evidence of urine incontinence. Prior to this event, apparently her mom had been complaining about weakness and not feeling well. At the time of arrival of the daughter, besides urinary incontinence, there was presence of a foam in the mouth as well as some twitching. The patient, as mentioned above, has history of hemorrhagic stroke and there was a high suspicious for a seizure activity likely due to a very high blood pressure. The patient apparently had prior history of seizure activity as well. On arrival to the emergency department, blood pressure was 192/145 mmHg with a pulse of 128. The patient was admitted to intensive care unit with hypertension emergency and encephalopathy likely due to this condition. Initial troponin I level was reported to be elevated above 1. A 12-lead electrocardiogram was significant for T-wave inversions in QT prolongation suggestive of SHED HAND injury versus electrolyte abnormalities versus ischemia. Cardiology consultation was made at the request of Dr. Mark Hawkins. This patient is seen in intensive care unit of [facility]. PAST MEDICAL HISTORY: 1. History of asthma. 2. History of diabetes mellitus. 3. History of seizure disorders. 4. History of hemorrhagic stroke. 5. History of hypertension, noncompliant with medication. 6. History of coronary artery disease, status post coronary artery bypass graft surgery. PAST SURGICAL HISTORY: Coronary artery bypass graft surgery, the number of the graft is currently unknown. MEDICATIONS AT HOME: Amlodipine 5 mg p.o. daily, atenolol 50 mg p.o. daily, benazepril hydrochlorothiazide combination 20/12.5 one tablet daily, and lisinopril 20 mg p.o. daily. It is not clear whether the patient takes any of these medications. ALLERGIES: Penicillin. SOCIAL HISTORY: There is no history of tobacco, alcohol, or illicit drug use. FAMILY HISTORY: No premature coronary artery disease in the first-degree relatives. REVIEW OF SYSTEMS: HEENT: Denies any headache, diplopia, or blurred vision at this time, but at the time of arrival to the hospital, the patient had headaches and altered level of consciousness. CONSTITUTIONAL: Denies any fever, chills, night sweats, or weight loss. CARDIOVASCULAR: Denies any chest pain, shortness of breath, PND, orthopnea, leg swelling, or palpitations. PULMONARY: Denies any cough, hemoptysis, or wheezing. GASTROINTESTINAL: Denies any nausea. She had vomitus material found where she was found down. There is no history of GI bleed. GENITOURINARY: Denies any hematuria, dysuria, or incontinence. NEUROLOGY: Possible seizure activity with altered mental status following the seizure. No signs of lateralization is reported. PHYSICAL EXAMINATION: VITAL SIGNS: Blood pressure was 192/145, respirations of 11, pulse of 128, temperature 97.5 degrees Fahrenheit, and O2 saturation 99% on non-rebreather mask at 15 liters/minute. GENERAL: The patient is a very unfortunate 56-year-old female, now with better mental status, answering to my questions appropriately. HEENT: Atraumatic and normocephalic. Anicteric. Pupils are equal, round, and reactive to light and accommodation. Extraocular muscles intact. NECK: JVP less than 5 cm. No carotid bruit. Carotid upstrokes 2+ bilaterally. CVS: Normal S1, S2. Regular rate and rhythm. No murmurs, gallops, or rubs. PMI is at fourth intercoastal space in the midclavicular line. LUNGS: Clear to auscultation bilaterally. ABDOMEN: Soft, nontender, and nondistended. No hepatosplenomegaly. Positive bowel sounds. EXTREMITIES: No evidence of edema, clubbing, or cyanosis. DIAGNOSTIC DATA: A 12-lead electrocardiogram shows sinus rhythm with a prolongation of QT interval as well as T-wave inversions and central nervous system injury versus electrolyte abnormalities versus ischemia in the lateral wall and inferior wall. LABORATORY FINDINGS: WBC was 15.3, hemoglobin of 15.7, hematocrit 49.3, and platelet count is 250,000. Sodium 140, potassium 3.3, chloride 101, bicarbonate 31, BUN of 20, and creatinine 1.1. Glucose is 276. Hemoglobin A1c is 6.9. Troponin I this morning was 1.33. Toxicology showed positive marijuana. A CT of head negative for acute intracranial bleed or mass effect. Extensive periventricular and basal ganglia deep white matter low attenuation, likely chronic microvascular ischemic changes. Demyelinating disease could not be excluded. There is evidence of old bilateral basal ganglia lacunar infarct. Chest x-ray shows no acute cardiopulmonary disease. Brain MRI shows an acute infarct in the right parietal deep white matter, acute lacunar infarcts, small in number, cannot be ruled out, questionable embolic phenomena of cardiac origin, presence of old hemorrhagic infarct in the left parasagittal parietal lobe, old micro hemorrhages from multiple scattered foci signifying chronic hypertensive encephalopathy with micro bleeds versus amyloid angiopathy, and chronic ischemic changes. ASSESSMENT AND PLAN: The patient is a very unfortunate 56-year-old female, seen in Cardiology consultation for elevation of troponin I level. 1. Hypertension emergency with stage IV and organ damage including emergence of acute encephalopathy. The patient has already been treated for hypertension emergency and currently the systolic blood pressure is ranging around 130 mmHg. All the blood pressure medication is on hold to prevent interference with the cerebral blood flow. We would like to keep the blood pressure around 150 mmHg as the patient has history of chronic hypertension. The reason for this condition is obviously noncompliance with medication. The patient has already history of hemorrhagic stroke, which was evident in multiple areas of the brain including specifically on the left parietal lobe. 2. History of seizures due to encephalopathy due to hypertension emergency. Neurology consultation is in progress. 3. Elevation of troponin I level could be secondary to the acute infarct, which was verified by MRI of a brain yesterday. The patient is currently chest pain free. The 12-lead EKG changes including the repolarization abnormalities, most likely due to central nervous system changes. In phase of history of coronary artery disease and coronary artery bypass graft surgery in the past, we are to be performing an ischemic workup once her neurological status is more stable. At this time, given the extent of hemorrhagic spots in the brain, I would be inclined not to use any antiplatelet agents in this patient. We will continue the patient monitoring of chest pain and EKG changes on a daily basis. 4. High-dose statin is warranted. We will switch to 80 mg of atorvastatin. 5. The time spent in the intensive care unit of [facility] for evaluation of this patient in Cardiology consultation was 45 minutes. I would like to thank, Dr. Hawkins for the courtesy of this consultation. Karl Horton M.D. DR: GERMAIN JOB#: [id number] CC:
--- NOTE | 2017-04-02 20:56 | General Progress Note ---
Assessment/Plan Problem List: (1) Acute encephalopathy ICD Codes: G93.40 - Encephalopathy, unspecified SNOMED: 6900839 (2) CVA (cerebral vascular accident) ICD Codes: I63.9 - Cerebral infarction, unspecified SNOMED: 603831444, 056535725 Qualifiers: Qualified Codes: I63.9 - Cerebral infarction, unspecified (3) Hypertensive emergency ICD Codes: I16.1 - Hypertensive emergency SNOMED: 795638291004060 (4) Hyperglycemia ICD Codes: R73.9 - Hyperglycemia, unspecified SNOMED: 94865611 (5) Noncompliance ICD Codes: Z91.19 - Patient's noncompliance with other medical treatment and regimen SNOMED: 4329147 Status: progressing Assessment/Plan acute cva htn urgency bp is improving afebrile more alert dm non compliant Subjective ROS Limited/Unobtainable: Yes Allergies: Coded Allergies: PENICILLINS (Verified Allergy, Unknown, 04/01/17) Objective Last 24 Hour Vital Signs Date Time Temp Pulse Resp B/P (MAP) Pulse Ox O2 Delivery O2 Flow Rate FiO2 04/02/17 20:52 77 147/96 04/02/17 20:28 97.7 91 18 131/90 98 Room Air 04/02/17 19:36 97 Room Air 21 04/02/17 19:36 Room Air 04/02/17 18:00 150/106 04/02/17 16:00 97.7 85 19 146/106 Room Air 04/02/17 16:00 85 04/02/17 16:00 89 04/02/17 13:00 101 04/02/17 13:00 92 20 148/97 100 Room Air 04/02/17 12:00 98.6 95 20 140/99 100 Room Air 04/02/17 12:00 140/99 04/02/17 11:00 85 19 132/86 100 Room Air 04/02/17 10:00 78 20 145/91 99 Room Air 04/02/17 09:00 81 17 131/89 99 Room Air 04/02/17 09:00 75 131/89 04/02/17 08:00 76 04/02/17 08:00 98.5 85 20 136/95 99 Room Air 04/02/17 07:00 83 22 130/87 97 Room Air 04/02/17 06:00 84 20 131/80 97 Room Air 04/02/17 06:00 131/80 04/02/17 05:00 90 18 102/57 97 Room Air 04/02/17 04:00 93 04/02/17 04:00 98.6 93 18 104/63 98 Nasal Cannula 3.0 04/02/17 03:00 88 18 109/65 97 Nasal Cannula 3.0 04/02/17 02:00 91 18 111/75 98 Nasal Cannula 3.0 04/02/17 01:00 92 18 106/68 97 Nasal Cannula 3.0 04/02/17 00:00 98.5 94 20 102/70 97 Nasal Cannula 3.0 04/02/17 00:00 112/70 04/01/17 23:00 95 20 98/65 97 Nasal Cannula 3.0 04/01/17 22:00 98 21 122/79 97 Nasal Cannula 3.0 04/01/17 21:00 96 21 107/69 97 Nasal Cannula 3.0 Intake and Output 04/02/17 04/03/17 19:00 07:00 Intake Total 276.66 ml Output Total 120 ml Balance 156.66 ml Intake Oral 0 ml IV Total 276.66 ml Output Urine Total 120 ml Laboratory Tests 04/02/17 03:55: White Blood Count 3.5#L, Red Blood Count 5.21, Hemoglobin 15.0, Hematocrit 46.9 , Mean Corpuscular Volume 90, Mean Corpuscular Hemoglobin 28.8, Mean Corpuscular Hemoglobin Concent 32.0, Red Cell Distribution Width 12.7, Platelet Count 221, Mean Platelet Volume 8.0, Neutrophils (%) (Auto) 69.1, Lymphocytes (% ) (Auto) 23.4, Monocytes (%) (Auto) 6.6, Eosinophils (%) (Auto) 0.1, Basophils ( %) (Auto) 0.7, Sodium Level 139, Potassium Level 3.5, Chloride Level 104, Carbon Dioxide Level 28, Anion Gap 7, Blood Urea Nitrogen 22H, Creatinine 1.0, Estimat Glomerular Filtration Rate 57.1, Glucose Level 143#H, Hemoglobin A1c 7.1H, Uric Acid 7.3H, Calcium Level 8.9, Phosphorus Level 2.6, Magnesium Level 1.7L, Total Bilirubin 0.6, Gamma Glutamyl Transpeptidase 97H, Aspartate Amino Transf (AST/SGOT) 27, Alanine Aminotransferase (ALT/SGPT) 36, Alkaline Phosphatase 126H, Ammonia 48H, Total Creatine Kinase 181, Troponin I 1.331H, C- Reactive Protein, Quantitative 2.1H, Pro-B-Type Natriuretic Peptide 6871H, Total Protein 7.1, Albumin 3.3L, Globulin 3.8, Albumin/Globulin Ratio 0.9L, Triglycerides Level 88, Cholesterol Level 191, LDL Cholesterol 121H, HDL Cholesterol 51, Cholesterol/HDL Ratio 3.7, Thyroid Stimulating Hormone (TSH) 0.402 04/02/17 10:30: Troponin I 1.325H Height (Feet): 5 Height (Inches): 8.00 Weight (Pounds): 279 Mark Hawkins MD Apr 02, 2017 20:56
[2017-04-02] MEDS ORDERED: Atorvastatin 20mg tab ORAL SCH ×2 (21:00)
[2017-04-03 00:40] VITALS: BP 133/81
[2017-04-03 04:00] VITALS: BP 140/85
[2017-04-03] MEDS: NovoLOG Insulin Flexpen SUBQ SCH ×4 (05:49→21:00)
[2017-04-03] MEDS: Enalaprilat 2.5mg/2ml Inj IV SCH ×4 (05:49→18:00)
[2017-04-03 08:17] VITALS: BP 137/109
[2017-04-03] MEDS: Metoprolol Tartrate 12.5mg TAB NG SCH ×2 (09:39→21:00)
--- NOTE | 2017-04-03 10:48 | Infectious Diseases Prog Note ---
Assessment/Plan Assessment/Plan A; SIRS, leukocytosis resolved Acute CVA Seizure disorder DM type II CAD P; Observe off antibiotic Subjective ROS Limited/Unobtainable: No Constitutional: Reports: no symptoms Respiratory: Reports: no symptoms Cardiovascular: Reports: no symptoms Gastrointestinal/Abdominal: Reports: no symptoms Genitourinary: Reports: no symptoms Allergies: Coded Allergies: PENICILLINS (Verified Allergy, Unknown, 04/01/17) Objective Vital Signs Last 24 Hour Vital Signs Date Time Temp Pulse Resp B/P (MAP) Pulse Ox O2 Delivery O2 Flow Rate FiO2 04/03/17 09:39 82 137/109 04/03/17 08:17 96.9 82 18 137/109 97 04/03/17 05:49 144/97 04/03/17 04:00 98.2 73 20 140/85 95 Room Air 04/03/17 03:38 67 04/03/17 00:40 97.7 76 18 133/81 96 Room Air 04/03/17 00:00 133/81 04/02/17 23:36 79 04/02/17 20:52 77 147/96 04/02/17 20:28 97.7 91 18 131/90 98 Room Air 04/02/17 19:36 97 Room Air 21 04/02/17 19:36 Room Air 04/02/17 19:04 84 04/02/17 18:00 150/106 04/02/17 16:00 97.7 85 19 146/106 Room Air 04/02/17 16:00 85 04/02/17 16:00 89 04/02/17 13:00 101 04/02/17 13:00 92 20 148/97 100 Room Air 04/02/17 12:00 98.6 95 20 140/99 100 Room Air 04/02/17 12:00 140/99 04/02/17 11:00 85 19 132/86 100 Room Air Height (Feet): 5 Height (Inches): 8.00 Weight (Pounds): 280 General Appearance: no acute distress HEENT: mucous membranes moist Respiratory/Chest: lungs clear Cardiovascular: normal rate Abdomen: soft, non tender Extremities: no edema Neurologic/Psychiatric: alert, oriented x 3, responsive Microbiology Date/Time Source Procedure Growth Status 04/01/17 04:50 Nasal Nares MRSA Culture - Final NO METHICILLIN RESISTANT STAPH AUREUS... Complete 04/01/17 15:20 Indwelling Cath Urine Culture - Preliminary NO GROWTH AFTER 24 HOURS Resulted 04/01/17 02:50 Urine,Clean Catch Urine Culture - Final Mixed Gram Positive Organism Complete 04/01/17 04:50 Rectum VRE Culture - Final NO VANCOMYCIN RESISTANT ENTEROCOCCUS ... Complete Current Medications Medications (Trade) Dose Ordered Sig/Svetlana Route PRN Reason Start Time Stop Time Status Last Admin Dose Admin Acetaminophen (Tylenol) 650 mg Q4H PRN ORAL Mild Pain/Temp > 100.5 04/02/17 15:00 05/01/17 06:59 Atorvastatin Calcium (Lipitor) 20 mg BEDTIME ORAL 04/02/17 21:00 05/02/17 20:59 04/02/17 20:49 Dextrose (Dextrose 50%) STAT PRN IV Hypoglycemia 04/02/17 14:15 05/01/17 14:14 Enalaprilat (Vasotec) 2.5 mg EVERY 6 HOURS IV 04/02/17 18:00 05/01/17 11:59 Famotidine (Pepcid I.v.) 20 mg Q12HR IVP 04/02/17 21:00 05/01/17 20:59 04/03/17 10:25 Insulin Aspart (NovoLOG) BEFORE MEALS AND HS SUBQ 04/02/17 16:30 05/01/17 20:59 Levetiracetam (Keppra) 500 mg Q12HR ORAL 04/02/17 21:00 05/02/17 12:44 04/03/17 09:39 Metoprolol Tartrate (Lopressor) 12.5 mg Q12HR NG 04/02/17 21:00 05/01/17 20:59 04/03/17 09:39 JACKIE SALGUERO Apr 03, 2017 10:48
--- NOTE | 2017-04-03 11:27 | Cardiology Report ---
APPROVED REPORT EKG Measurement Heart [id number] Normal sinus rhythm T wave abnormality, consider inferior ischemia T wave abnormality, consider anterolateral ischemia Prolonged QT Abnormal ECG
[2017-04-03 12:01] VITALS: BP 137/86
--- NOTE | 2017-04-03 13:24 | Nephrology Progress Note ---
Assessment/Plan Problem List: (1) Acute encephalopathy (2) Morbid obesity with BMI of 45.0-49.9, adult (3) Hypertensive emergency Assessment Hypertensive emergency Acute encephalopathy Morbid obesity with BMI of 45.0-49.9, adult UTI (urinary tract infection) Proteinuria CVA (cerebral vascular accident) acute Dm , high A1c high Troponin Plan NGT PRN BP Meds mag supplements per orders, per consultants discussed with RN Subjective ROS Limited/Unobtainable: No Constitutional: Reports: malaise Objective Objective Last 24 Hour Vital Signs Date Time Temp Pulse Resp B/P (MAP) Pulse Ox O2 Delivery O2 Flow Rate FiO2 04/03/17 12:01 96.6 68 18 137/86 96 04/03/17 12:00 71 04/03/17 09:39 82 137/109 04/03/17 08:17 96.9 82 18 137/109 97 04/03/17 08:00 82 04/03/17 05:49 144/97 04/03/17 04:00 98.2 73 20 140/85 95 Room Air 04/03/17 03:38 67 04/03/17 00:40 97.7 76 18 133/81 96 Room Air 04/03/17 00:00 133/81 04/02/17 23:36 79 04/02/17 20:52 77 147/96 04/02/17 20:28 97.7 91 18 131/90 98 Room Air 04/02/17 19:36 97 Room Air 21 04/02/17 19:36 Room Air 04/02/17 19:04 84 04/02/17 18:00 150/106 04/02/17 16:00 97.7 85 19 146/106 Room Air 04/02/17 16:00 85 04/02/17 16:00 89 Height (Feet): 5 Height (Inches): 8.00 Weight (Pounds): 280 General Appearance: no apparent distress Objective pe not change CED HENRY Apr 03, 2017 13:24
--- NOTE | 2017-04-03 15:47 | General Progress Note ---
Assessment/Plan Problem List: (1) Hyperglycemia ICD Codes: R73.9 - Hyperglycemia, unspecified SNOMED: 60472630 (2) Hypertensive emergency ICD Codes: I16.1 - Hypertensive emergency SNOMED: 118681181605853 (3) s/p old multiple hemorrhagic/ischemic strokes, probably HTN angiopathy (4) Morbid obesity with BMI of 45.0-49.9, adult ICD Codes: E66.01 - Morbid (severe) obesity due to excess calories; Z68.42 - Body mass index (BMI) 45.0-49.9, adult SNOMED: 954578984, 309455173 Assessment/Plan glycemic control improved contineu Novolog sliding scale ac / hs Subjective Allergies: Coded Allergies: PENICILLINS (Verified Allergy, Unknown, 04/01/17) All Systems: reviewed and negative except above Subjective doing better glucose values improved Objective Last 24 Hour Vital Signs Date Time Temp Pulse Resp B/P (MAP) Pulse Ox O2 Delivery O2 Flow Rate FiO2 04/03/17 12:01 96.6 68 18 137/86 96 04/03/17 12:00 71 04/03/17 09:39 82 137/109 04/03/17 08:17 96.9 82 18 137/109 97 04/03/17 08:00 Room Air 04/03/17 08:00 96 Room Air 21 04/03/17 08:00 82 04/03/17 05:49 144/97 04/03/17 04:00 98.2 73 20 140/85 95 Room Air 04/03/17 03:38 67 04/03/17 00:40 97.7 76 18 133/81 96 Room Air 04/03/17 00:00 133/81 04/02/17 23:36 79 04/02/17 20:52 77 147/96 04/02/17 20:28 97.7 91 18 131/90 98 Room Air 04/02/17 19:36 97 Room Air 21 04/02/17 19:36 Room Air 04/02/17 19:04 84 04/02/17 18:00 150/106 04/02/17 16:00 97.7 85 19 146/106 Room Air 04/02/17 16:00 85 04/02/17 16:00 89 Height (Feet): 5 Height (Inches): 8.00 Weight (Pounds): 280 General Appearance: no apparent distress Neck: normal alignment Cardiovascular: normal rate Respiratory/Chest: lungs clear Abdomen: normal bowel sounds Edema: no edema noted Arm (L), no edema noted Arm (R), no edema noted Leg (L), no edema noted Leg (R), no edema noted Pedal (L), no edema noted Pedal (R), no edema noted Generalized Objective Current Medications Medications (Trade) Dose Ordered Sig/Svetlana Route PRN Reason Start Time Stop Time Status Last Admin Dose Admin Acetaminophen (Tylenol) 650 mg Q4H PRN ORAL Mild Pain/Temp > 100.5 04/02/17 15:00 05/01/17 06:59 Atorvastatin Calcium (Lipitor) 20 mg BEDTIME ORAL 04/02/17 21:00 05/02/17 20:59 04/02/17 20:49 Dextrose (Dextrose 50%) STAT PRN IV Hypoglycemia 04/02/17 14:15 05/01/17 14:14 Enalaprilat (Vasotec) 2.5 mg EVERY 6 HOURS IV 04/02/17 18:00 05/01/17 11:59 Insulin Aspart (NovoLOG) BEFORE MEALS AND HS SUBQ 04/02/17 16:30 05/01/17 20:59 Lansoprazole (Prevacid) 30 mg DAILY ORAL 04/03/17 13:30 05/03/17 13:29 04/03/17 14:16 Levetiracetam (Keppra) 500 mg Q12HR ORAL 04/02/17 21:00 05/02/17 12:44 04/03/17 09:39 Metoprolol Tartrate (Lopressor) 12.5 mg Q12HR NG 04/02/17 21:00 05/01/17 20:59 04/03/17 09:39 Item Value Date Time Bedside Blood Glucose 157 mg/dl H 04/03/17 1130 Bedside Blood Glucose 116 mg/dl 04/03/17 0549 Bedside Blood Glucose 140 mg/dl H 04/02/17 2100 MANAS JARAMILLO Apr 03, 2017 15:47
[2017-04-03 15:48] VITALS: BP 140/96
--- NOTE | 2017-04-03 16:59 | General Progress Note ---
Assessment/Plan Assessment/Plan ASSESSMENT AND RECOMMENDATIONS: 1. Leukocytosis, secondary to SIRS, resolved. 2. Acute CVA, has been seen by Neurology service. Continue to monitor. Getting PT, OT, and speech therapy. 3. Hypertensive urgency. 4. Acute encephalopathy. 5. Urinary tract infection. 6. Coronary artery disease, status post coronary artery bypass graft. 7. Type 2 diabetes mellitus. Subjective Allergies: Coded Allergies: PENICILLINS (Verified Allergy, Unknown, 04/01/17) All Systems: reviewed and negative except above Subjective no events overnight Objective Last 24 Hour Vital Signs Date Time Temp Pulse Resp B/P (MAP) Pulse Ox O2 Delivery O2 Flow Rate FiO2 04/03/17 15:48 97.9 78 18 140/96 97 04/03/17 12:01 96.6 68 18 137/86 96 04/03/17 12:00 71 04/03/17 09:39 82 137/109 04/03/17 08:17 96.9 82 18 137/109 97 04/03/17 08:00 Room Air 04/03/17 08:00 96 Room Air 21 04/03/17 08:00 82 04/03/17 05:49 144/97 04/03/17 04:00 98.2 73 20 140/85 95 Room Air 04/03/17 03:38 67 04/03/17 00:40 97.7 76 18 133/81 96 Room Air 04/03/17 00:00 133/81 04/02/17 23:36 79 04/02/17 20:52 77 147/96 04/02/17 20:28 97.7 91 18 131/90 98 Room Air 04/02/17 19:36 97 Room Air 21 04/02/17 19:36 Room Air 04/02/17 19:04 84 04/02/17 18:00 150/106 Intake and Output 04/03/17 04/04/17 19:00 07:00 Intake Total 200 ml Balance 200 ml Intake Oral 200 ml Height (Feet): 5 Height (Inches): 8.00 Weight (Pounds): 280 General Appearance: no apparent distress EENT: normal ENT inspection Neck: normal alignment Edema: trace edema Neurologic: responsive Skin: normal pigmentation Rikki Bañuelos Apr 03, 2017 16:59
--- NOTE | 2017-04-03 17:30 | General Progress Note ---
Assessment/Plan Problem List: (1) Acute encephalopathy ICD Codes: G93.40 - Encephalopathy, unspecified SNOMED: 4153842 (2) CVA (cerebral vascular accident) ICD Codes: I63.9 - Cerebral infarction, unspecified SNOMED: 379768434, 180758017 Qualifiers: Qualified Codes: I63.9 - Cerebral infarction, unspecified (3) Hypertensive emergency ICD Codes: I16.1 - Hypertensive emergency SNOMED: 802003293103327 (4) Hyperglycemia ICD Codes: R73.9 - Hyperglycemia, unspecified SNOMED: 28363714 (5) Noncompliance ICD Codes: Z91.19 - Patient's noncompliance with other medical treatment and regimen SNOMED: 4187392 Assessment/Plan acute cva htn urgency bp is improving afebrile more alert dm non compliant diet advancement per st dc planning Subjective ROS Limited/Unobtainable: Yes Allergies: Coded Allergies: PENICILLINS (Verified Allergy, Unknown, 04/01/17) Objective Last 24 Hour Vital Signs Date Time Temp Pulse Resp B/P (MAP) Pulse Ox O2 Delivery O2 Flow Rate FiO2 04/03/17 15:48 97.9 78 18 140/96 97 04/03/17 12:01 96.6 68 18 137/86 96 04/03/17 12:00 71 04/03/17 09:39 82 137/109 04/03/17 08:17 96.9 82 18 137/109 97 04/03/17 08:00 Room Air 04/03/17 08:00 96 Room Air 21 04/03/17 08:00 82 04/03/17 05:49 144/97 04/03/17 04:00 98.2 73 20 140/85 95 Room Air 04/03/17 03:38 67 04/03/17 00:40 97.7 76 18 133/81 96 Room Air 04/03/17 00:00 133/81 04/02/17 23:36 79 04/02/17 20:52 77 147/96 04/02/17 20:28 97.7 91 18 131/90 98 Room Air 04/02/17 19:36 97 Room Air 21 04/02/17 19:36 Room Air 04/02/17 19:04 84 04/02/17 18:00 150/106 Intake and Output 04/03/17 04/04/17 19:00 07:00 Intake Total 200 ml Balance 200 ml Intake Oral 200 ml Height (Feet): 5 Height (Inches): 8.00 Weight (Pounds): 280 Mark Hawkins MD Apr 03, 2017 17:30
--- NOTE | 2017-04-03 18:38 | Cardiology Progress Note ---
Assessment/Plan Assessment/Plan 1. Hypertension emergency with stage IV and organ damage including emergence of acute encephalopathy. Continue metoprolol, start amlodipine 5mg in am. Will adjust BP dose. 2. History of seizures due to encephalopathy due to hypertension emergency. 3. Elevation of troponin I level could be secondary to the acute brain infarct, which was verified by MRI of a brain, doubt ACS, although demand-supply mismatch in presence of underlying CAD, i.e.hx of CABG, is a possibility. The patient is currently chest pain free. The 12-lead EKG changes including shows repolarization abnormalities, likely due to central nervous system disorder, 12 lead ECG now. 4. CAD, s/p CABG, switch to high-dose statin. ASA is contra-indicated until 6 months after ICH. Subjective Subjective Sinus rhythm at 78. Objective Last 24 Hour Vital Signs Date Time Temp Pulse Resp B/P (MAP) Pulse Ox O2 Delivery O2 Flow Rate FiO2 04/03/17 15:48 97.9 78 18 140/96 97 04/03/17 12:01 96.6 68 18 137/86 96 04/03/17 12:00 71 04/03/17 09:39 82 137/109 04/03/17 08:17 96.9 82 18 137/109 97 04/03/17 08:00 Room Air 04/03/17 08:00 96 Room Air 21 04/03/17 08:00 82 04/03/17 05:49 144/97 04/03/17 04:00 98.2 73 20 140/85 95 Room Air 04/03/17 03:38 67 04/03/17 00:40 97.7 76 18 133/81 96 Room Air 04/03/17 00:00 133/81 04/02/17 23:36 79 04/02/17 20:52 77 147/96 04/02/17 20:28 97.7 91 18 131/90 98 Room Air 04/02/17 19:36 97 Room Air 21 04/02/17 19:36 Room Air 04/02/17 19:04 84 Intake and Output 04/03/17 04/04/17 19:00 07:00 Intake Total 450 ml Balance 450 ml Intake Oral 450 ml 2D Echo: LVEF 60%, Mild LVH, ROMY, RAP 10 mmHg, RVSP 35 mmHg. Microbiology Date/Time Source Procedure Growth Status 04/01/17 04:50 Nasal Nares MRSA Culture - Final NO METHICILLIN RESISTANT STAPH AUREUS... Complete 04/01/17 15:20 Indwelling Cath Urine Culture - Preliminary NO GROWTH AFTER 24 HOURS Resulted 04/01/17 02:50 Urine,Clean Catch Urine Culture - Final Mixed Gram Positive Organism Complete 04/01/17 04:50 Rectum VRE Culture - Final NO VANCOMYCIN RESISTANT ENTEROCOCCUS ... Complete Objective GENERAL: The patient is a very unfortunate 56-year-old female, now with better mental status, answering to my questions appropriately. HEENT: Atraumatic and normocephalic. Anicteric. Pupils are equal, round, and reactive to light and accommodation. Extraocular muscles intact. NECK: JVP less than 5 cm. No carotid bruit. Carotid upstrokes 2+ bilaterally. CVS: Normal S1, S2. Regular rate and rhythm. No murmurs, gallops, or rubs. PMI is at fourth intercoastal space in the midclavicular line. LUNGS: Clear to auscultation bilaterally. ABDOMEN: Soft, nontender, and nondistended. No hepatosplenomegaly. Positive bowel sounds. EXTREMITIES: No evidence of edema, clubbing, or cyanosis. JESSICA NORTON Apr 03, 2017 18:38
[2017-04-03 20:00] VITALS: BP 131/98
[2017-04-03] MEDS: Atorvastatin 80mg tab ORAL SCH (23:43)
[2017-04-04] VITALS: BP 133/91
[2017-04-04 04:00] VITALS: BP 112/92
[2017-04-04] MEDS: Enalaprilat 2.5mg/2ml Inj IV SCH ×2 (06:00)
[2017-04-04] MEDS: NovoLOG Insulin Flexpen SUBQ SCH ×4 (06:30→20:58)
[2017-04-04 07:51] LABS: BASOPHILS % (AUTO) 1.1 % (0.0-2.0); EOSINOPHILS % (AUTO) 0.5 % (0.0-3.0); MEAN CORPUSCULAR HEMOGLOBIN 29.1 PG (27.0-31.0); MEAN CORPUSCULAR HGB CONC 32.2 G/DL (32.0-36.0); MEAN CORPUSCULAR VOLUME 90 FL (80-99); MEAN PLATELET VOLUME 8.2 FL (6.5-10.1); MONOCYTES % (AUTO) 6.8 % (1.0-10.0); NEUTROPHILS % (AUTO) 55.7 % (45.0-75.0); PLATELET COUNT 200 K/UL (150-450); RED BLOOD COUNT 5.12 M/UL (4.20-5.40); RED CELL DISTRIBUTION WIDTH 12.7 % (11.6-14.8); WHITE BLOOD COUNT 9.6 K/UL (4.8-10.8)
[2017-04-04 08:00] VITALS: BP 125/74
[2017-04-04 08:26] LABS: ALANINE AMINOTRANSFERASE 22 U/L (12-78); ALBUMIN/GLOBULIN RATIO 0.8 (1.0-2.7); ANION GAP 6 mmol/L (5-15); ASPARTATE AMINO TRANSFERASE 17 U/L (15-37); CALCIUM 8.9 MG/DL (8.5-10.1); CARBON DIOXIDE 32 MMOL/L (21-32); CHLORIDE 106 MMOL/L (98-107); CRP QUANT 0.6 mg/dL (0.00-0.90); GLOMERULAR FILTRATION RATE 57.1 mL/min (>60); MAGNESIUM 2.1 MG/DL (1.8-2.4); PHOSPHORUS 3.4 MG/DL (2.5-4.9); POTASSIUM 3.6 MMOL/L (3.5-5.1); SODIUM 144 MMOL/L (136-145); TOTAL PROTEIN 7.2 G/DL (6.4-8.2); URIC ACID 6.9 MG/DL (2.6-7.2)
[2017-04-04] MEDS: Metoprolol Tartrate 12.5mg TAB NG SCH ×2 (09:00→20:56)
[2017-04-04 09:02] LABS: BILIRUBIN,DIRECT 0.2 MG/DL (0.0-0.3)
--- NOTE | 2017-04-04 09:15 | Nephrology Progress Note ---
Assessment/Plan Problem List: (1) Acute encephalopathy (2) Morbid obesity with BMI of 45.0-49.9, adult (3) Hypertensive emergency Assessment Hypertensive emergency now resolved Acute encephalopathy improved Morbid obesity with BMI of 45.0-49.9, adult UTI (urinary tract infection) Proteinuria CVA (cerebral vascular accident) acute Dm , high A1c high Troponin Plan NGT adjust BP Meds mag supplements as needed per orders, per consultants discussed with RN stable from renal stand Subjective ROS Limited/Unobtainable: No Objective Objective Last 24 Hour Vital Signs Date Time Temp Pulse Resp B/P (MAP) Pulse Ox O2 Delivery O2 Flow Rate FiO2 04/04/17 08:00 97.5 91 19 125/74 95 04/04/17 06:00 112/92 04/04/17 04:00 74 04/04/17 04:00 97.6 89 18 112/92 96 Room Air 04/04/17 00:00 83 04/04/17 00:00 133/91 04/04/17 00:00 98.7 87 18 133/91 94 04/03/17 21:00 85 131/98 04/03/17 20:00 89 04/03/17 20:00 98.8 85 19 131/98 97 04/03/17 16:00 86 04/03/17 15:48 97.9 78 18 140/96 97 04/03/17 12:01 96.6 68 18 137/86 96 04/03/17 12:00 71 04/03/17 09:39 82 137/109 Laboratory Tests 04/04/17 07:00: White Blood Count 9.6, Red Blood Count 5.12, Hemoglobin 14.9, Hematocrit 46.3, Mean Corpuscular Volume 90, Mean Corpuscular Hemoglobin 29.1, Mean Corpuscular Hemoglobin Concent 32.2, Red Cell Distribution Width 12.7, Platelet Count 200, Mean Platelet Volume 8.2, Neutrophils (%) (Auto) 55.7, Lymphocytes (%) (Auto) 36.0, Monocytes (%) (Auto) 6.8, Eosinophils (%) (Auto) 0.5, Basophils (%) (Auto ) 1.1, Sodium Level 144, Potassium Level 3.6, Chloride Level 106, Carbon Dioxide Level 32, Anion Gap 6, Blood Urea Nitrogen 20H, Creatinine 1.0, Estimat Glomerular Filtration Rate 57.1, Glucose Level 117H, Uric Acid 6.9, Calcium Level 8.9, Phosphorus Level 3.4, Magnesium Level 2.1, Total Bilirubin 1.2H, Direct Bilirubin 0.2, Aspartate Amino Transf (AST/SGOT) 17, Alanine Aminotransferase (ALT/SGPT) 22, Alkaline Phosphatase 113, C-Reactive Protein, Quantitative 0.6, Total Protein 7.2, Albumin 3.3L, Globulin 3.9, Albumin/ Globulin Ratio 0.8L Height (Feet): 5 Height (Inches): 8.00 Weight (Pounds): 285 General Appearance: no apparent distress Objective pe not change CED HENRY Apr 04, 2017 09:15
--- NOTE | 2017-04-04 10:59 | Infectious Diseases Prog Note ---
Assessment/Plan Assessment/Plan antibiotics : none A 1. leucocytosis resolved 2. CVA 3. seizures 4. DM P 1. continue off antibiotics Subjective Constitutional: Denies: fever, chills Respiratory: Denies: shortness of breath, dry cough Gastrointestinal/Abdominal: Denies: nausea, vomiting, diarrhea Musculoskeletal: Denies: pain Allergies: Coded Allergies: PENICILLINS (Verified Allergy, Unknown, 04/01/17) Objective Vital Signs Last 24 Hour Vital Signs Date Time Temp Pulse Resp B/P (MAP) Pulse Ox O2 Delivery O2 Flow Rate FiO2 04/04/17 09:00 91 125/74 04/04/17 08:17 100 04/04/17 08:00 97.5 91 19 125/74 95 04/04/17 06:00 112/92 04/04/17 04:00 74 04/04/17 04:00 97.6 89 18 112/92 96 Room Air 04/04/17 00:00 83 04/04/17 00:00 133/91 04/04/17 00:00 98.7 87 18 133/91 94 04/03/17 21:00 85 131/98 04/03/17 20:00 89 04/03/17 20:00 98.8 85 19 131/98 97 04/03/17 16:00 86 04/03/17 15:48 97.9 78 18 140/96 97 04/03/17 12:01 96.6 68 18 137/86 96 04/03/17 12:00 71 Height (Feet): 5 Height (Inches): 8.00 Weight (Pounds): 285 Respiratory/Chest: lungs clear Cardiovascular: normal rate, regular rhythm, no gallop/murmur Abdomen: soft, non tender Extremities: no edema Microbiology Date/Time Source Procedure Growth Status 04/01/17 15:20 Indwelling Cath Urine Culture - Final NO GROWTH AFTER 48 HOURS Complete Laboratory Tests Test 04/04/17 07:00 White Blood Count 9.6 K/UL (4.8-10.8) Red Blood Count 5.12 M/UL (4.20-5.40) Hemoglobin 14.9 G/DL (12.0-16.0) Hematocrit 46.3 % (37.0-47.0) Mean Corpuscular Volume 90 FL (80-99) Mean Corpuscular Hemoglobin 29.1 PG (27.0-31.0) Mean Corpuscular Hemoglobin Concent 32.2 G/DL (32.0-36.0) Red Cell Distribution Width 12.7 % (11.6-14.8) Platelet Count 200 K/UL (150-450) Mean Platelet Volume 8.2 FL (6.5-10.1) Neutrophils (%) (Auto) 55.7 % (45.0-75.0) Lymphocytes (%) (Auto) 36.0 % (20.0-45.0) Monocytes (%) (Auto) 6.8 % (1.0-10.0) Eosinophils (%) (Auto) 0.5 % (0.0-3.0) Basophils (%) (Auto) 1.1 % (0.0-2.0) Sodium Level 144 MMOL/L (136-145) Potassium Level 3.6 MMOL/L (3.5-5.1) Chloride Level 106 MMOL/L (98-107) Carbon Dioxide Level 32 MMOL/L (21-32) Anion Gap 6 mmol/L (5-15) Blood Urea Nitrogen 20 mg/dL (7-18) H Creatinine 1.0 MG/DL (0.55-1.30) Estimat Glomerular Filtration Rate 57.1 mL/min (>60) Glucose Level 117 MG/DL (74-106) H Uric Acid 6.9 MG/DL (2.6-7.2) Calcium Level 8.9 MG/DL (8.5-10.1) Phosphorus Level 3.4 MG/DL (2.5-4.9) Magnesium Level 2.1 MG/DL (1.8-2.4) Total Bilirubin 1.2 MG/DL (0.2-1.0) H Direct Bilirubin 0.2 MG/DL (0.0-0.3) Aspartate Amino Transf (AST/SGOT) 17 U/L (15-37) Alanine Aminotransferase (ALT/SGPT) 22 U/L (12-78) Alkaline Phosphatase 113 U/L (46-116) C-Reactive Protein, Quantitative 0.6 mg/dL (0.00-0.90) Total Protein 7.2 G/DL (6.4-8.2) Albumin 3.3 G/DL (3.4-5.0) L Globulin 3.9 g/dL Albumin/Globulin Ratio 0.8 (1.0-2.7) L SANDY BRIZUELA Apr 04, 2017 10:59
[2017-04-04 12:00] VITALS: BP 124/95
--- NOTE | 2017-04-04 13:24 | General Progress Note ---
Assessment/Plan Problem List: (1) Acute encephalopathy ICD Codes: G93.40 - Encephalopathy, unspecified SNOMED: 1416149 (2) CVA (cerebral vascular accident) ICD Codes: I63.9 - Cerebral infarction, unspecified SNOMED: 050935215, 721509812 Qualifiers: Qualified Codes: I63.9 - Cerebral infarction, unspecified (3) Hypertensive emergency ICD Codes: I16.1 - Hypertensive emergency SNOMED: 203711161294921 (4) Hyperglycemia ICD Codes: R73.9 - Hyperglycemia, unspecified SNOMED: 78644864 (5) Noncompliance ICD Codes: Z91.19 - Patient's noncompliance with other medical treatment and regimen SNOMED: 0547722 Status: progressing Assessment/Plan acute cva htn urgency bp is improving afebrile more alert reviewed chart and labs encepholpathy improving Subjective ROS Limited/Unobtainable: Yes Allergies: Coded Allergies: PENICILLINS (Verified Allergy, Unknown, 04/01/17) Objective Last 24 Hour Vital Signs Date Time Temp Pulse Resp B/P (MAP) Pulse Ox O2 Delivery O2 Flow Rate FiO2 04/04/17 12:00 97.2 88 20 124/95 99 04/04/17 11:53 90 04/04/17 09:00 91 125/74 04/04/17 08:17 100 04/04/17 08:00 97.5 91 19 125/74 95 04/04/17 06:00 112/92 04/04/17 04:00 74 04/04/17 04:00 97.6 89 18 112/92 96 Room Air 04/04/17 00:00 83 04/04/17 00:00 133/91 04/04/17 00:00 98.7 87 18 133/91 94 04/03/17 21:00 85 131/98 04/03/17 20:00 89 04/03/17 20:00 98.8 85 19 131/98 97 04/03/17 16:00 86 04/03/17 15:48 97.9 78 18 140/96 97 Laboratory Tests 04/04/17 07:00: White Blood Count 9.6, Red Blood Count 5.12, Hemoglobin 14.9, Hematocrit 46.3, Mean Corpuscular Volume 90, Mean Corpuscular Hemoglobin 29.1, Mean Corpuscular Hemoglobin Concent 32.2, Red Cell Distribution Width 12.7, Platelet Count 200, Mean Platelet Volume 8.2, Neutrophils (%) (Auto) 55.7, Lymphocytes (%) (Auto) 36.0, Monocytes (%) (Auto) 6.8, Eosinophils (%) (Auto) 0.5, Basophils (%) (Auto ) 1.1, Sodium Level 144, Potassium Level 3.6, Chloride Level 106, Carbon Dioxide Level 32, Anion Gap 6, Blood Urea Nitrogen 20H, Creatinine 1.0, Estimat Glomerular Filtration Rate 57.1, Glucose Level 117H, Uric Acid 6.9, Calcium Level 8.9, Phosphorus Level 3.4, Magnesium Level 2.1, Total Bilirubin 1.2H, Direct Bilirubin 0.2, Aspartate Amino Transf (AST/SGOT) 17, Alanine Aminotransferase (ALT/SGPT) 22, Alkaline Phosphatase 113, C-Reactive Protein, Quantitative 0.6, Total Protein 7.2, Albumin 3.3L, Globulin 3.9, Albumin/ Globulin Ratio 0.8L Height (Feet): 5 Height (Inches): 8.00 Weight (Pounds): 285 Mark Hawkins MD Apr 04, 2017 13:24
[2017-04-04 16:00] VITALS: BP 118/84
[2017-04-04] MEDS ORDERED: Tubing IV Secondary IV ONE (17:21)
[2017-04-04] MEDS ORDERED: NS 500ML ONE (17:21)
[2017-04-04 20:30] VITALS: BP 136/93
[2017-04-04] MEDS: Atorvastatin 80mg tab ORAL SCH (20:54)
--- NOTE | 2017-04-04 20:54 | General Progress Note ---
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 (4) Morbid obesity with BMI of 45.0-49.9, adult ICD Codes: E66.01 - Morbid (severe) obesity due to excess calories; Z68.42 - Body mass index (BMI) 45.0-49.9, adult SNOMED: 012231893, 219212669 Assessment/Plan add Metformin 500 mg bid continue Novolog sliding scale ac / hs Subjective Allergies: Coded Allergies: PENICILLINS (Verified Allergy, Unknown, 04/01/17) All Systems: reviewed and negative except above Subjective events noted Objective Last 24 Hour Vital Signs Date Time Temp Pulse Resp B/P (MAP) Pulse Ox O2 Delivery O2 Flow Rate FiO2 04/04/17 20:30 97.7 85 18 136/93 94 Room Air 04/04/17 16:00 97.2 70 20 118/84 96 04/04/17 15:14 72 04/04/17 12:00 97.2 88 20 124/95 99 04/04/17 11:53 90 04/04/17 09:00 91 125/74 04/04/17 08:17 100 04/04/17 08:00 97.5 91 19 125/74 95 04/04/17 06:00 112/92 04/04/17 04:00 74 04/04/17 04:00 97.6 89 18 112/92 96 Room Air 04/04/17 00:00 83 04/04/17 00:00 133/91 04/04/17 00:00 98.7 87 18 133/91 94 04/03/17 21:00 85 131/98 Intake and Output 04/04/17 04/05/17 19:00 07:00 Intake Total 700 ml Balance 700 ml Intake Oral 700 ml Laboratory Tests 04/04/17 07:00: White Blood Count 9.6, Red Blood Count 5.12, Hemoglobin 14.9, Hematocrit 46.3, Mean Corpuscular Volume 90, Mean Corpuscular Hemoglobin 29.1, Mean Corpuscular Hemoglobin Concent 32.2, Red Cell Distribution Width 12.7, Platelet Count 200, Mean Platelet Volume 8.2, Neutrophils (%) (Auto) 55.7, Lymphocytes (%) (Auto) 36.0, Monocytes (%) (Auto) 6.8, Eosinophils (%) (Auto) 0.5, Basophils (%) (Auto ) 1.1, Sodium Level 144, Potassium Level 3.6, Chloride Level 106, Carbon Dioxide Level 32, Anion Gap 6, Blood Urea Nitrogen 20H, Creatinine 1.0, Estimat Glomerular Filtration Rate 57.1, Glucose Level 117H, Uric Acid 6.9, Calcium Level 8.9, Phosphorus Level 3.4, Magnesium Level 2.1, Total Bilirubin 1.2H, Direct Bilirubin 0.2, Aspartate Amino Transf (AST/SGOT) 17, Alanine Aminotransferase (ALT/SGPT) 22, Alkaline Phosphatase 113, C-Reactive Protein, Quantitative 0.6, Total Protein 7.2, Albumin 3.3L, Globulin 3.9, Albumin/ Globulin Ratio 0.8L Height (Feet): 5 Height (Inches): 8.00 Weight (Pounds): 285 General Appearance: no apparent distress Neck: normal alignment Cardiovascular: normal rate Respiratory/Chest: lungs clear Abdomen: normal bowel sounds Pelvis: normal external exam Edema: no edema noted Arm (L), no edema noted Arm (R), no edema noted Leg (L), no edema noted Leg (R), no edema noted Pedal (L), no edema noted Pedal (R), no edema noted Generalized Objective Current Medications Medications (Trade) Dose Ordered Sig/Svetlana Route PRN Reason Start Time Stop Time Status Last Admin Dose Admin Acetaminophen (Tylenol) 650 mg Q4H PRN ORAL Mild Pain/Temp > 100.5 04/02/17 15:00 05/01/17 06:59 Amlodipine Besylate (Norvasc) 2.5 mg DAILY ORAL 04/05/17 09:00 05/05/17 08:59 Atorvastatin Calcium (Lipitor) 80 mg BEDTIME ORAL 04/03/17 21:00 05/03/17 20:59 04/03/17 23:43 Dextrose (Dextrose 50%) STAT PRN IV Hypoglycemia 04/02/17 14:15 05/01/17 14:14 Insulin Aspart (NovoLOG) BEFORE MEALS AND HS SUBQ 04/02/17 16:30 05/01/17 20:59 04/04/17 16:51 Lansoprazole (Prevacid) 30 mg DAILY ORAL 04/03/17 13:30 05/03/17 13:29 04/04/17 09:23 Levetiracetam (Keppra) 500 mg Q12HR ORAL 04/02/17 21:00 05/02/17 12:44 04/04/17 09:23 Metoprolol Tartrate (Lopressor) 12.5 mg Q12HR NG 04/02/17 21:00 05/01/17 20:59 04/03/17 09:39 Item Value Date Time Bedside Blood Glucose 127 mg/dl H 04/04/17 1651 Bedside Blood Glucose 205 mg/dl H 04/04/17 1212 Bedside Blood Glucose 106 mg/dl 04/04/17 0630 MANSA JARAMILLO Apr 04, 2017 20:54
--- NOTE | 2017-04-04 21:23 | General Progress Note ---
Assessment/Plan Assessment/Plan ASSESSMENT AND RECOMMENDATIONS: 1. Leukocytosis, secondary to SIRS, resolved. wbc count normalized 2. Acute CVA, has been seen by Neurology service. Continue to monitor. Getting PT, OT, and speech therapy. 3. Hypertensive urgency. 4. Acute encephalopathy. 5. Urinary tract infection. 6. Coronary artery disease, status post coronary artery bypass graft. 7. Type 2 diabetes mellitus. Subjective Allergies: Coded Allergies: PENICILLINS (Verified Allergy, Unknown, 04/01/17) All Systems: reviewed and negative except above Subjective no events overnight Objective Last 24 Hour Vital Signs Date Time Temp Pulse Resp B/P (MAP) Pulse Ox O2 Delivery O2 Flow Rate FiO2 04/04/17 20:56 85 136/93 04/04/17 20:30 97.7 85 18 136/93 94 Room Air 04/04/17 16:00 97.2 70 20 118/84 96 04/04/17 15:14 72 04/04/17 12:00 97.2 88 20 124/95 99 04/04/17 11:53 90 04/04/17 09:00 91 125/74 04/04/17 08:17 100 04/04/17 08:00 97.5 91 19 125/74 95 04/04/17 06:00 112/92 04/04/17 04:00 74 04/04/17 04:00 97.6 89 18 112/92 96 Room Air 04/04/17 00:00 83 04/04/17 00:00 133/91 04/04/17 00:00 98.7 87 18 133/91 94 Intake and Output 04/04/17 04/05/17 19:00 07:00 Intake Total 700 ml Balance 700 ml Intake Oral 700 ml Laboratory Tests 04/04/17 07:00: White Blood Count 9.6, Red Blood Count 5.12, Hemoglobin 14.9, Hematocrit 46.3, Mean Corpuscular Volume 90, Mean Corpuscular Hemoglobin 29.1, Mean Corpuscular Hemoglobin Concent 32.2, Red Cell Distribution Width 12.7, Platelet Count 200, Mean Platelet Volume 8.2, Neutrophils (%) (Auto) 55.7, Lymphocytes (%) (Auto) 36.0, Monocytes (%) (Auto) 6.8, Eosinophils (%) (Auto) 0.5, Basophils (%) (Auto ) 1.1, Sodium Level 144, Potassium Level 3.6, Chloride Level 106, Carbon Dioxide Level 32, Anion Gap 6, Blood Urea Nitrogen 20H, Creatinine 1.0, Estimat Glomerular Filtration Rate 57.1, Glucose Level 117H, Uric Acid 6.9, Calcium Level 8.9, Phosphorus Level 3.4, Magnesium Level 2.1, Total Bilirubin 1.2H, Direct Bilirubin 0.2, Aspartate Amino Transf (AST/SGOT) 17, Alanine Aminotransferase (ALT/SGPT) 22, Alkaline Phosphatase 113, C-Reactive Protein, Quantitative 0.6, Total Protein 7.2, Albumin 3.3L, Globulin 3.9, Albumin/ Globulin Ratio 0.8L Height (Feet): 5 Height (Inches): 8.00 Weight (Pounds): 285 General Appearance: no apparent distress EENT: normal ENT inspection Neurologic: secondary connector armature II-XII grossly normal Skin: normal pigmentation Rikki Bañuelos Apr 04, 2017 21:23
--- NOTE | 2017-04-04 23:42 | Cardiology Progress Note ---
Assessment/Plan Assessment/Plan 1. Hypertension emergency, continue metoprolol and amlodipine. 2. History of seizures due to encephalopathy due to hypertension emergency. 3. Elevation of troponin I level could be secondary to the acute brain infarct, which was verified by MRI of a brain, doubt ACS, although demand-supply mismatch in presence of underlying CAD, i.e.hx of CABG, is a possibility. The patient is currently chest pain free. The 12-lead EKG changes including shows repolarization abnormalities, likely due to central nervous system disorder. 4. CAD, s/p CABG, continue statin. ASA is contra-indicated until 6 months after ICH. Subjective Subjective Sinus rhythm at 85. Objective Last 24 Hour Vital Signs Date Time Temp Pulse Resp B/P (MAP) Pulse Ox O2 Delivery O2 Flow Rate FiO2 04/04/17 20:56 85 136/93 04/04/17 20:30 97.7 85 18 136/93 94 Room Air 04/04/17 20:00 93 04/04/17 16:00 97.2 70 20 118/84 96 04/04/17 15:14 72 04/04/17 12:00 97.2 88 20 124/95 99 04/04/17 11:53 90 04/04/17 09:00 91 125/74 04/04/17 08:17 100 04/04/17 08:00 97.5 91 19 125/74 95 04/04/17 06:00 112/92 04/04/17 04:00 74 04/04/17 04:00 97.6 89 18 112/92 96 Room Air 04/04/17 00:00 83 04/04/17 00:00 133/91 04/04/17 00:00 98.7 87 18 133/91 94 Intake and Output 04/04/17 04/05/17 19:00 07:00 Intake Total 700 ml Balance 700 ml Intake Oral 700 ml 2D Echo: LVEF 60%, Mild LVH, ROMY, RAP 10 mmHg, RVSP 35 mmHg. Laboratory Tests Test 04/04/17 07:00 White Blood Count 9.6 K/UL (4.8-10.8) Red Blood Count 5.12 M/UL (4.20-5.40) Hemoglobin 14.9 G/DL (12.0-16.0) Hematocrit 46.3 % (37.0-47.0) Mean Corpuscular Volume 90 FL (80-99) Mean Corpuscular Hemoglobin 29.1 PG (27.0-31.0) Mean Corpuscular Hemoglobin Concent 32.2 G/DL (32.0-36.0) Red Cell Distribution Width 12.7 % (11.6-14.8) Platelet Count 200 K/UL (150-450) Mean Platelet Volume 8.2 FL (6.5-10.1) Neutrophils (%) (Auto) 55.7 % (45.0-75.0) Lymphocytes (%) (Auto) 36.0 % (20.0-45.0) Monocytes (%) (Auto) 6.8 % (1.0-10.0) Eosinophils (%) (Auto) 0.5 % (0.0-3.0) Basophils (%) (Auto) 1.1 % (0.0-2.0) Sodium Level 144 MMOL/L (136-145) Potassium Level 3.6 MMOL/L (3.5-5.1) Chloride Level 106 MMOL/L (98-107) Carbon Dioxide Level 32 MMOL/L (21-32) Anion Gap 6 mmol/L (5-15) Blood Urea Nitrogen 20 mg/dL (7-18) H Creatinine 1.0 MG/DL (0.55-1.30) Estimat Glomerular Filtration Rate 57.1 mL/min (>60) Glucose Level 117 MG/DL (74-106) H Uric Acid 6.9 MG/DL (2.6-7.2) Calcium Level 8.9 MG/DL (8.5-10.1) Phosphorus Level 3.4 MG/DL (2.5-4.9) Magnesium Level 2.1 MG/DL (1.8-2.4) Total Bilirubin 1.2 MG/DL (0.2-1.0) H Direct Bilirubin 0.2 MG/DL (0.0-0.3) Aspartate Amino Transf (AST/SGOT) 17 U/L (15-37) Alanine Aminotransferase (ALT/SGPT) 22 U/L (12-78) Alkaline Phosphatase 113 U/L (46-116) C-Reactive Protein, Quantitative 0.6 mg/dL (0.00-0.90) Total Protein 7.2 G/DL (6.4-8.2) Albumin 3.3 G/DL (3.4-5.0) L Globulin 3.9 g/dL Albumin/Globulin Ratio 0.8 (1.0-2.7) L Objective GENERAL: The patient is a very unfortunate 56-year-old female, now with better mental status, answering to my questions appropriately. HEENT: Atraumatic and normocephalic. Anicteric. Pupils are equal, round, and reactive to light and accommodation. Extraocular muscles intact. NECK: JVP less than 5 cm. No carotid bruit. Carotid upstrokes 2+ bilaterally. CVS: Normal S1, S2. Regular rate and rhythm. No murmurs, gallops, or rubs. PMI is at fourth intercoastal space in the midclavicular line. LUNGS: Clear to auscultation bilaterally. ABDOMEN: Soft, nontender, and nondistended. No hepatosplenomegaly. Positive bowel sounds. EXTREMITIES: No evidence of edema, clubbing, or cyanosis. JESSICA NORTON Apr 04, 2017 23:42
[2017-04-05 00:42] VITALS: BP 113/63
[2017-04-05 04:37] VITALS: BP 138/84
--- NOTE | 2017-04-05 05:46 | General Progress Note ---
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, probably HTN angiopathy (4) Morbid obesity with BMI of 45.0-49.9, adult ICD Codes: E66.01 - Morbid (severe) obesity due to excess calories; Z68.42 - Body mass index (BMI) 45.0-49.9, adult SNOMED: 496460293, 542644504 Assessment/Plan Metformin 500 mg tid continue Novolog sliding scale ac / hs Subjective Allergies: Coded Allergies: PENICILLINS (Verified Allergy, Unknown, 04/01/17) All Systems: reviewed and negative except above Subjective events noted Objective Last 24 Hour Vital Signs Date Time Temp Pulse Resp B/P (MAP) Pulse Ox O2 Delivery O2 Flow Rate FiO2 04/05/17 04:37 97.7 83 18 138/84 96 Room Air 04/05/17 04:00 79 04/05/17 00:42 98.1 79 18 113/63 97 04/05/17 00:00 77 04/04/17 20:56 85 136/93 04/04/17 20:30 97.7 85 18 136/93 94 Room Air 04/04/17 20:00 93 04/04/17 16:00 97.2 70 20 118/84 96 04/04/17 15:14 72 04/04/17 12:00 97.2 88 20 124/95 99 04/04/17 11:53 90 04/04/17 09:00 91 125/74 04/04/17 08:17 100 04/04/17 08:00 97.5 91 19 125/74 95 04/04/17 06:00 112/92 Laboratory Tests 04/04/17 07:00: White Blood Count 9.6, Red Blood Count 5.12, Hemoglobin 14.9, Hematocrit 46.3, Mean Corpuscular Volume 90, Mean Corpuscular Hemoglobin 29.1, Mean Corpuscular Hemoglobin Concent 32.2, Red Cell Distribution Width 12.7, Platelet Count 200, Mean Platelet Volume 8.2, Neutrophils (%) (Auto) 55.7, Lymphocytes (%) (Auto) 36.0, Monocytes (%) (Auto) 6.8, Eosinophils (%) (Auto) 0.5, Basophils (%) (Auto ) 1.1, Sodium Level 144, Potassium Level 3.6, Chloride Level 106, Carbon Dioxide Level 32, Anion Gap 6, Blood Urea Nitrogen 20H, Creatinine 1.0, Estimat Glomerular Filtration Rate 57.1, Glucose Level 117H, Uric Acid 6.9, Calcium Level 8.9, Phosphorus Level 3.4, Magnesium Level 2.1, Total Bilirubin 1.2H, Direct Bilirubin 0.2, Aspartate Amino Transf (AST/SGOT) 17, Alanine Aminotransferase (ALT/SGPT) 22, Alkaline Phosphatase 113, C-Reactive Protein, Quantitative 0.6, Total Protein 7.2, Albumin 3.3L, Globulin 3.9, Albumin/ Globulin Ratio 0.8L Height (Feet): 5 Height (Inches): 8.00 Weight (Pounds): 285 General Appearance: no apparent distress Neck: normal alignment Cardiovascular: normal rate Respiratory/Chest: lungs clear Abdomen: normal bowel sounds Pelvis: normal external exam Edema: no edema noted Arm (L), no edema noted Arm (R), no edema noted Leg (L), no edema noted Leg (R), no edema noted Pedal (L), no edema noted Pedal (R), no edema noted Generalized Objective Current Medications Medications (Trade) Dose Ordered Sig/Svetlana Route PRN Reason Start Time Stop Time Status Last Admin Dose Admin Acetaminophen (Tylenol) 650 mg Q4H PRN ORAL Mild Pain/Temp > 100.5 04/02/17 15:00 05/01/17 06:59 Amlodipine Besylate (Norvasc) 2.5 mg DAILY ORAL 04/05/17 09:00 05/05/17 08:59 Atorvastatin Calcium (Lipitor) 80 mg BEDTIME ORAL 04/03/17 21:00 05/03/17 20:59 04/04/17 20:54 Dextrose (Dextrose 50%) STAT PRN IV Hypoglycemia 04/02/17 14:15 05/01/17 14:14 Insulin Aspart (NovoLOG) BEFORE MEALS AND HS SUBQ 04/02/17 16:30 05/01/17 20:59 04/04/17 20:58 Lansoprazole (Prevacid) 30 mg DAILY ORAL 04/03/17 13:30 05/03/17 13:29 04/04/17 09:23 Levetiracetam (Keppra) 500 mg Q12HR ORAL 04/02/17 21:00 05/02/17 12:44 04/04/17 20:54 Metformin HCl (Glucophage) 500 mg TIAC ORAL 04/05/17 06:30 05/05/17 06:29 Metoprolol Tartrate (Lopressor) 12.5 mg Q12HR NG 04/02/17 21:00 05/01/17 20:59 04/03/17 09:39 Item Value Date Time Bedside Blood Glucose 180 mg/dl H 04/04/17 2100 Bedside Blood Glucose 127 mg/dl H 04/04/17 1651 Bedside Blood Glucose 205 mg/dl H 04/04/17 1212 MANAS JARAMILLO Apr 05, 2017 05:46
[2017-04-05] MEDS: metFORMIN 500mg tab ORAL SCH ×3 (06:30→16:56)
[2017-04-05] MEDS: NovoLOG Insulin Flexpen SUBQ SCH ×4 (06:33→21:59)
[2017-04-05 08:00] VITALS: BP 144/66
[2017-04-05] MEDS: Metoprolol Tartrate 12.5mg TAB NG SCH ×2 (08:43→20:55)
--- NOTE | 2017-04-05 09:26 | Infectious Diseases Prog Note ---
Assessment/Plan Assessment/Plan A; SIRS, leukocytosis resolved Acute CVA Seizure disorder DM type II CAD P; Observe off antibiotic Subjective ROS Limited/Unobtainable: No Constitutional: Reports: no symptoms Respiratory: Reports: no symptoms Cardiovascular: Reports: no symptoms Gastrointestinal/Abdominal: Reports: no symptoms Genitourinary: Reports: no symptoms Allergies: Coded Allergies: PENICILLINS (Verified Allergy, Unknown, 04/01/17) Objective Vital Signs Last 24 Hour Vital Signs Date Time Temp Pulse Resp B/P (MAP) Pulse Ox O2 Delivery O2 Flow Rate FiO2 04/05/17 08:43 78 144/66 04/05/17 08:42 78 144/66 04/05/17 08:00 97.5 78 21 144/66 99 04/05/17 04:37 97.7 83 18 138/84 96 Room Air 04/05/17 04:00 79 04/05/17 00:42 98.1 79 18 113/63 97 04/05/17 00:00 77 04/04/17 20:56 85 136/93 04/04/17 20:30 97.7 85 18 136/93 94 Room Air 04/04/17 20:00 93 04/04/17 16:00 97.2 70 20 118/84 96 04/04/17 15:14 72 04/04/17 12:00 97.2 88 20 124/95 99 04/04/17 11:53 90 Height (Feet): 5 Height (Inches): 8.00 Weight (Pounds): 285 General Appearance: no acute distress HEENT: mucous membranes moist Respiratory/Chest: lungs clear Cardiovascular: normal rate Abdomen: soft, non tender Extremities: no edema Neurologic/Psychiatric: alert, oriented x 3, responsive Current Medications Medications (Trade) Dose Ordered Sig/Svetlana Route PRN Reason Start Time Stop Time Status Last Admin Dose Admin Acetaminophen (Tylenol) 650 mg Q4H PRN ORAL Mild Pain/Temp > 100.5 04/02/17 15:00 05/01/17 06:59 Amlodipine Besylate (Norvasc) 2.5 mg DAILY ORAL 04/05/17 09:00 05/05/17 08:59 04/05/17 08:42 Atorvastatin Calcium (Lipitor) 80 mg BEDTIME ORAL 04/03/17 21:00 05/03/17 20:59 04/04/17 20:54 Dextrose (Dextrose 50%) STAT PRN IV Hypoglycemia 04/02/17 14:15 05/01/17 14:14 Insulin Aspart (NovoLOG) BEFORE MEALS AND HS SUBQ 04/02/17 16:30 05/01/17 20:59 04/05/17 06:33 Lansoprazole (Prevacid) 30 mg DAILY ORAL 04/03/17 13:30 05/03/17 13:29 04/05/17 08:42 Levetiracetam (Keppra) 500 mg Q12HR ORAL 04/02/17 21:00 05/02/17 12:44 04/05/17 08:43 Metformin HCl (Glucophage) 500 mg TIAC ORAL 04/05/17 06:30 05/05/17 06:29 04/05/17 06:30 Metoprolol Tartrate (Lopressor) 12.5 mg Q12HR NG 04/02/17 21:00 05/01/17 20:59 04/03/17 09:39 JACKIE SALGUERO Apr 05, 2017 09:26
[2017-04-05 12:00] VITALS: BP 134/100
--- NOTE | 2017-04-05 12:16 | Nephrology Progress Note ---
Assessment/Plan Problem List: (1) Acute encephalopathy (2) Morbid obesity with BMI of 45.0-49.9, adult (3) Hypertensive emergency Assessment Hypertensive emergency now resolved Acute encephalopathy improved Morbid obesity with BMI of 45.0-49.9, adult UTI (urinary tract infection) Proteinuria CVA (cerebral vascular accident) acute Dm , high A1c high Troponin Plan adjust BP Meds mag supplements as needed per orders, per consultants discussed with RN stable from renal stand Subjective ROS Limited/Unobtainable: No Constitutional: Reports: malaise Objective Objective Last 24 Hour Vital Signs Date Time Temp Pulse Resp B/P (MAP) Pulse Ox O2 Delivery O2 Flow Rate FiO2 04/05/17 12:00 97.1 80 134/100 04/05/17 08:43 78 144/66 04/05/17 08:42 78 144/66 04/05/17 08:00 97.5 78 21 144/66 99 04/05/17 08:00 79 04/05/17 04:37 97.7 83 18 138/84 96 Room Air 04/05/17 04:00 79 04/05/17 00:42 98.1 79 18 113/63 97 04/05/17 00:00 77 04/04/17 20:56 85 136/93 04/04/17 20:30 97.7 85 18 136/93 94 Room Air 04/04/17 20:00 93 04/04/17 16:00 97.2 70 20 118/84 96 04/04/17 15:14 72 Height (Feet): 5 Height (Inches): 8.00 Weight (Pounds): 285 General Appearance: no apparent distress Objective pe not change CED HENRY Apr 05, 2017 12:16
--- NOTE | 2017-04-05 12:49 | General Progress Note ---
Assessment/Plan Assessment/Plan ASSESSMENT AND RECOMMENDATIONS: 1.. Acute CVA, has been seen by Neurology service. Continue to monitor. Getting PT, OT, and speech therapy. 2. Hypertensive urgency. 3. Coronary artery disease, status post coronary artery bypass graft. 4. Type 2 diabetes mellitus. 5. Leukocytosis resolved. Now off antibiotics. Subjective Allergies: Coded Allergies: PENICILLINS (Verified Allergy, Unknown, 04/01/17) All Systems: reviewed and negative except above Subjective off abx Objective Last 24 Hour Vital Signs Date Time Temp Pulse Resp B/P (MAP) Pulse Ox O2 Delivery O2 Flow Rate FiO2 04/05/17 12:00 97.1 80 134/100 04/05/17 08:43 78 144/66 04/05/17 08:42 78 144/66 04/05/17 08:00 97.5 78 21 144/66 99 04/05/17 08:00 79 04/05/17 04:37 97.7 83 18 138/84 96 Room Air 04/05/17 04:00 79 04/05/17 00:42 98.1 79 18 113/63 97 04/05/17 00:00 77 04/04/17 20:56 85 136/93 04/04/17 20:30 97.7 85 18 136/93 94 Room Air 04/04/17 20:00 93 04/04/17 16:00 97.2 70 20 118/84 96 04/04/17 15:14 72 Height (Feet): 5 Height (Inches): 8.00 Weight (Pounds): 285 General Appearance: no apparent distress EENT: normal ENT inspection Neck: normal alignment Cardiovascular: normal peripheral pulses Respiratory/Chest: chest wall non-tender Extremities: normal range of motion Skin: normal pigmentation Rikki Bañuelos Apr 05, 2017 12:49
[2017-04-05 16:00] VITALS: BP 124/70
--- NOTE | 2017-04-05 18:09 | Wound Care Consultation ---
Wound Assessment Wound Assessment : Wound Number: 1 Wound Present on Admission: Yes New Wound: No Status Change of Wound: No Wound Location Body Site Modif: right, anterior Wound Location Body Site: wrist Wound Type: traumatic injury Sapna Test: Does not Sapna Wound Thickness: Partial Thickness Wound Length: 2.5 Wound Width: 2.5 Wound Depth: less than 0.1 Percent of Wound [place]/Red: 100 Wound Drainage Amount: None Wound Drainage Odor: None/Absent Tissue Surrounding Wound: Intact Wound General Appearance: Reddened Wound Comment #1 Right anterior wrist traumatic open wound with partial thickness skin loss. Recommendation -Local wound care per protocol -Keep clean and dry -Turn and reposition -Optimize nutrition -Assess and f/u accordingly for any changes AMI CROOKS RN Apr 05, 2017 18:09
--- NOTE | 2017-04-05 20:29 | General Progress Note ---
Assessment/Plan Problem List: (1) Acute encephalopathy ICD Codes: G93.40 - Encephalopathy, unspecified SNOMED: 8089500 (2) CVA (cerebral vascular accident) ICD Codes: I63.9 - Cerebral infarction, unspecified SNOMED: 198821530, 700705708 Qualifiers: Qualified Codes: I63.9 - Cerebral infarction, unspecified (3) Hypertensive emergency ICD Codes: I16.1 - Hypertensive emergency SNOMED: 779709054335655 (4) Hyperglycemia ICD Codes: R73.9 - Hyperglycemia, unspecified SNOMED: 07643195 (5) Noncompliance ICD Codes: Z91.19 - Patient's noncompliance with other medical treatment and regimen SNOMED: 1397835 Status: progressing Assessment/Plan acute cva htn urgency s/p cva dc planning reviewed chart and labs encepholpathy improving Subjective ROS Limited/Unobtainable: Yes Allergies: Coded Allergies: PENICILLINS (Verified Allergy, Unknown, 04/01/17) Objective Last 24 Hour Vital Signs Date Time Temp Pulse Resp B/P (MAP) Pulse Ox O2 Delivery O2 Flow Rate FiO2 04/05/17 16:00 97.0 86 20 124/70 95 04/05/17 16:00 86 04/05/17 12:00 80 04/05/17 12:00 97.1 80 134/100 04/05/17 08:43 78 144/66 04/05/17 08:42 78 144/66 04/05/17 08:00 97.5 78 21 144/66 99 04/05/17 08:00 79 04/05/17 04:37 97.7 83 18 138/84 96 Room Air 04/05/17 04:00 79 04/05/17 00:42 98.1 79 18 113/63 97 04/05/17 00:00 77 04/04/17 20:56 85 136/93 04/04/17 20:30 97.7 85 18 136/93 94 Room Air Intake and Output 04/05/17 04/06/17 19:00 07:00 Intake Total 700 ml Balance 700 ml Intake Oral 700 ml Height (Feet): 5 Height (Inches): 8.00 Weight (Pounds): 285 Mark Hawkins MD Apr 05, 2017 20:29
[2017-04-05 20:34] VITALS: BP 116/67
[2017-04-05] MEDS: Atorvastatin 80mg tab ORAL SCH (21:49)
[2017-04-06 00:38] VITALS: BP 117/67
[2017-04-06 04:25] VITALS: BP 140/77
[2017-04-06] MEDS: metFORMIN 500mg tab ORAL SCH (06:55)
[2017-04-06] MEDS: NovoLOG Insulin Flexpen SUBQ SCH (06:55)
[2017-04-06 08:24] VITALS: BP 134/101
[2017-04-06] MEDS: Metoprolol Tartrate 12.5mg TAB NG SCH ×2 (08:29→08:31)
[2017-04-06 08:52] VITALS: BP 134/101
--- NOTE | 2017-04-06 10:14 | Nephrology Progress Note ---
Assessment/Plan Problem List: (1) Acute encephalopathy (2) Morbid obesity with BMI of 45.0-49.9, adult (3) Hypertensive emergency Assessment Hypertensive emergency now resolved Acute encephalopathy improved Morbid obesity with BMI of 45.0-49.9, adult UTI (urinary tract infection) Proteinuria CVA (cerebral vascular accident) acute Dm , high A1c high Troponin Plan no labs today adjust BP Meds mag supplements as needed per orders, per consultants discussed with RN stable from renal stand Subjective ROS Limited/Unobtainable: No Constitutional: Reports: malaise Objective Objective Last 24 Hour Vital Signs Date Time Temp Pulse Resp B/P (MAP) Pulse Ox O2 Delivery O2 Flow Rate FiO2 04/06/17 08:52 97.7 89 18 134/101 96 04/06/17 08:38 82 134/101 04/06/17 08:33 82 134/101 04/06/17 08:24 134/101 04/06/17 04:48 97.3 04/06/17 04:25 94.7 82 18 140/77 96 Room Air 04/06/17 04:00 78 04/06/17 00:38 97.9 90 18 117/67 94 Room Air 04/06/17 00:00 90 04/05/17 20:55 82 116/67 04/05/17 20:34 98.2 82 18 116/67 99 Room Air 04/05/17 20:00 88 04/05/17 16:00 97.0 86 20 124/70 95 04/05/17 16:00 86 04/05/17 12:00 80 04/05/17 12:00 97.1 80 134/100 Intake and Output 04/06/17 04/07/17 19:00 07:00 Intake Total 120 ml Balance 120 ml Intake Oral 120 ml # Voids 1 Height (Feet): 5 Height (Inches): 8.00 Weight (Pounds): 285 General Appearance: no apparent distress Objective pe not change CED HENRY Apr 06, 2017 10:14
[2017-04-06 11:31] LABS: BASOPHILS % (AUTO) 1.2 % (0.0-2.0); EOSINOPHILS % (AUTO) 1.4 % (0.0-3.0); LYMPHOCYTES % (AUTO) 32.9 % (20.0-45.0); MEAN CORPUSCULAR HEMOGLOBIN 29.6 PG (27.0-31.0); MEAN CORPUSCULAR HGB CONC 32.6 G/DL (32.0-36.0); MEAN CORPUSCULAR VOLUME 91 FL (80-99); MEAN PLATELET VOLUME 8.1 FL (6.5-10.1); MONOCYTES % (AUTO) 6.9 % (1.0-10.0); NEUTROPHILS % (AUTO) 57.6 % (45.0-75.0); PLATELET COUNT 190 K/UL (150-450); RED CELL DISTRIBUTION WIDTH 12.9 % (11.6-14.8); WHITE BLOOD COUNT 11.2 K/UL (4.8-10.8)
[2017-04-06 12:02] LABS: ALANINE AMINOTRANSFERASE 21 U/L (12-78); ALBUMIN/GLOBULIN RATIO 0.9 (1.0-2.7); ANION GAP 8 mmol/L (5-15); ASPARTATE AMINO TRANSFERASE 14 U/L (15-37); CARBON DIOXIDE 28 MMOL/L (21-32); CHLORIDE 106 MMOL/L (98-107); CRP QUANT 1.6 mg/dL (0.00-0.90); MAGNESIUM 1.8 MG/DL (1.8-2.4); PHOSPHORUS 3.3 MG/DL (2.5-4.9); POTASSIUM 3.7 MMOL/L (3.5-5.1); SODIUM 142 MMOL/L (136-145); TOTAL PROTEIN 7.1 G/DL (6.4-8.2)
[2017-04-06 12:11] LABS: CALCIUM 9.2 MG/DL (8.5-10.1); GLOMERULAR FILTRATION RATE 57.1 mL/min (>60)
--- NOTE | 2017-04-06 20:45 | General Progress Note ---
Assessment/Plan Assessment/Plan ASSESSMENT AND RECOMMENDATIONS: 1.. Acute CVA, has been seen by Neurology service. Continue to monitor. Getting PT, OT, and speech therapy. 2. Hypertensive urgency. 3. Coronary artery disease, status post coronary artery bypass graft. 4. Type 2 diabetes mellitus. 5. Leukocytosis resolved. Now off antibiotics. continue to monitor Subjective Allergies: Coded Allergies: PENICILLINS (Verified Allergy, Unknown, 04/01/17) All Systems: reviewed and negative except above Subjective nad Objective Last 24 Hour Vital Signs Date Time Temp Pulse Resp B/P (MAP) Pulse Ox O2 Delivery O2 Flow Rate FiO2 04/06/17 08:52 97.7 89 18 134/101 96 04/06/17 08:38 82 134/101 04/06/17 08:33 82 134/101 04/06/17 08:24 134/101 04/06/17 04:48 97.3 04/06/17 04:25 94.7 82 18 140/77 96 Room Air 04/06/17 04:00 78 04/06/17 00:38 97.9 90 18 117/67 94 Room Air 04/06/17 00:00 90 04/05/17 20:55 82 116/67 Intake and Output 04/06/17 04/07/17 19:00 07:00 Intake Total 120 ml Balance 120 ml Intake Oral 120 ml # Voids 2 Laboratory Tests 04/06/17 11:00: White Blood Count 11.2H, Red Blood Count 4.90, Hemoglobin 14.5, Hematocrit 44.6 , Mean Corpuscular Volume 91, Mean Corpuscular Hemoglobin 29.6, Mean Corpuscular Hemoglobin Concent 32.6, Red Cell Distribution Width 12.9, Platelet Count 190, Mean Platelet Volume 8.1, Neutrophils (%) (Auto) 57.6, Lymphocytes (% ) (Auto) 32.9, Monocytes (%) (Auto) 6.9, Eosinophils (%) (Auto) 1.4, Basophils ( %) (Auto) 1.2, Sodium Level 142, Potassium Level 3.7, Chloride Level 106, Carbon Dioxide Level 28, Anion Gap 8, Blood Urea Nitrogen 19H, Creatinine 1.0, Estimat Glomerular Filtration Rate 57.1, Glucose Level 121H, Calcium Level 9.2, Phosphorus Level 3.3, Magnesium Level 1.8, Total Bilirubin 1.0, Aspartate Amino Transf (AST/SGOT) 14L, Alanine Aminotransferase (ALT/SGPT) 21, Alkaline Phosphatase 113, C-Reactive Protein, Quantitative 1.6H, Pro-B-Type Natriuretic Peptide 586H, Total Protein 7.1, Albumin 3.3L, Globulin 3.8, Albumin/Globulin Ratio 0.9L Height (Feet): 5 Height (Inches): 8.00 Weight (Pounds): 285 General Appearance: no apparent distress EENT: PERRL/EOMI Neck: normal alignment Cardiovascular: normal peripheral pulses Abdomen: non tender Edema: trace edema Rikki Bañuelos Apr 06, 2017 20:45
--- NOTE | 2017-04-07 21:33 | Discharge Summary ---
Discharge Summary Hospital Course Date of Admission Apr 01, 2017 at 04:25 Date of Discharge Apr 06, 2017 at 11:30 Admitting Diagnosis HYPERTENSIVE EMERGENCY,CVA HPI Alena Galaviz is a 56 year old female who was admitted on Apr 01, 2017 at 04: 25 for Hypertensive Emergency Hospital Course dc summary #[id number] Discharge Condition Upon Discharge: stable Discharge Disposition Patient was discharged to Home (01) Discharge Diagnoses: Discharge Instructions Discharge Instructions Special Instructions I have been assigned to complete a D/C Summary on this account. I was not involved in the patient management Padmini Turner NP (Vanchtein) Apr 07, 2017 21:33
--- NOTE | 2017-04-08 08:30 | Discharge Summary 2 SIG ---
DATE OF ADMISSION: 04/01/2017 DATE OF DISCHARGE: 04/06/2017 REASON FOR ADMISSION: 56-year-old female with a history of coronary artery disease, status post coronary artery bypass graft, multiple falls, hypertension, diabetes, asthma, noncompliant with her medications, was found by her daughter. Upon arrival, her mother was unresponsive and 911 was called. There was evidence of urinary incontinence and vomited material where mom was found. Prior to this event, the patient was complaining about weakness and not feeling well. At the time of arrival of her daughter, besides urinary incontinence there was presence of foam in the patient's mouth as well as some facial twitching. The patient with a history of hemorrhagic stroke and there was a high suspicion for seizure activity likely due to high blood pressure. Upon arrival in the emergency department, blood pressure was 192/145 with a pulse rate of 128. Laboratory workup revealed leukocytosis, WBC- 16.3. Glucose- 276 and potassium- 3.3. Urinalysis with evidence of pyuria and moderate amount of bacteria. Urine toxicology screen positive for marijuana. EKG revealed sinus rhythm. No acute ischemic changes. Chest x-ray revealed no acute cardiopulmonary pathology. CT of the head revealed no acute intracranial pathology, but showed evidence of old infarcts. Initial troponin was elevated-1.331. The patient was admitted to the intensive care unit with hypertensive emergency and encephalopathy. HOSPITAL COURSE: The patient was admitted to ICU. Cardiology, Neurology, ID, and Endocrinology consults were requested. Per records specialist, the patient had hypertensive emergency with stage IV organ damage including acute encephalopathy. Antihypertensive regimen was titrated with multiple antihypertensive medications. Neurologist seen and evaluated the patient. Per neurologist, the patient had a "loss of consciousness," most likely representing generalized seizure event triggered by a fall. In addition, the patient presented with a hypertensive emergency contributing to persistent unresponsiveness. On admission in the emergency department, the patient was loaded with 1 g of Keppra. Keppra was continued 500 mg b.i.d. Electroencephalogram was obtained to rule out ongoing seizure activity. Neurologist recommended to keep systolic blood pressure above 120 and below 160 as well as control blood sugar. Carotid duplex was essentially negative. Lipid panel revealed elevated LDL of 121, goal to keep below 100. The patient's family was educated on low-fat low-cholesterol cardiac diabetic diet and continue with statin . MRI of the brain revealed acute right middle cerebral artery distribution ischemic lacunar infarct. Electroencephalogram was abnormal. It revealed presence of mild to moderate diffuse slowing immediately over the left frontal temporal area. Interpreter Translator closely followed. Per records specialist, elevation in troponin was likely secondary to acute brain infarct. Interpreter Translator doubt acute coronary syndrome, although the underlying coronary disease was the possibility. The patient was chest pain-free. A 12-lead EKG demonstrated repolarization abnormality likely due to central nervous system disorder. Echocardiogram revealed preserved ejection fraction 60-65%, moderate to severe left ventricular hypertrophy and right ventricular systolic pressure of 38 consistent with mild pulmonary hypertension. For coronary artery disease, records specialist recommended to continue statin.However, aspirin was contraindicated for six months after intracranial hemorrhage that the patient recently had. Initially, the patient was kept NPO, on the IV fluids. The patient was becoming more responsive with the treatment. The patient was started to work with physical and occupational therapists. The patient passed bedside swallow evaluation. The patient with evidence of dysphagia. Diet was started as per speech therapist recommendation. Family was educated on aspiration and reflux precautions. Blood sugar was managed with metformin and sliding scale of insulin. Hemoglobin A1c -7.1. [employer] followed and directed blood sugar management. ID closely followed the patient. Initially, the patient was on empiric antibiotics for possible UTI, however, urine culture came back with mixed gram-positive organism. Antibiotic were discontinued, and the patient was observed off antibiotics. Leukocytosis resolved. The patient remained afebrile. Supplemental oxygen provided as needed to keep pulse oximetry above 92%. Candy Decorator closely followed the patient. Electrolytes were corrected as needed and nephrotoxic were avoided. Patient was cleared for discharge by all consultants. FINAL DIAGNOSES: 1. Acute ischemic right middle cerebral artery distribution lacunar stroke. 2. Acute toxic metabolic encephalopathy likely secondary to hypertensive emergency. 3. Hypertensive emergency. 4. Recurrent seizures. 5. Status post multiple hemorrhagic/ischemic strokes. 6. Probably hypertensive angiopathy. 7. Acute multiple small strokes, rule out cardiac embolism. 8. Noncompliance. 9. Systemic inflammatory response syndrome with leukocytosis, resolved. 10. Diabetes mellitus type 2. 11. Coronary artery disease, status post coronary artery bypass graft. 12. Elevated troponin. 13. Morbid obesity. 14. Proteinuria. DISCHARGE MEDICATIONS: See medication reconciliation list. DISCHARGE INSTRUCTIONS: The patient was discharged home. Follow up with medical doctor next week. Mark Hawkins M.D. I have been assigned to dictate discharge summary on this account and I was not involved in the patient's management. Padmini Turner (Vanchtein) NCoriPCori DR: KAROLINE JOB#: [id number] CC: [email or web address]
--- NOTE | 2017-04-09 11:01 | Diagnostic Imaging Report ---
APPROVED REPORT CPT Code: 42528 Vascular Symptoms Dizziness and Vertigo Comments: AMS. Hx stroke, HTN, diabetes. Doppler Spectral Velocity Analysis RightLeft RIGHT SIDE: CCA - Imaging reveals minimal plaque within the common carotid artery, and no significant plaque within the external and internal carotid arteries. The Doppler spectral flow analysis is within normal limits throughout the extracranial carotid arteries. VERTEBRAL - The vertebral artery is within normal limits. LEFT SIDE: CCA - Imaging reveals minimal plaque within the common carotid artery, and no significant plaque within the external and internal carotid arteries. The Doppler spectral flow analysis is within normal limits throughout the extracranial carotid arteries. VERTEBRAL - The vertebral artery is within normal limits.
== END 2017-04-06 11:30 | disposition home or self-care (01) | DRG 45 ==
LOC: EDBD 02:29 → EMR 02:55 → EDBEDREQ 04:13 → ICU 04:25 → EDBEDREQ 04:54 → 2E 04-02 14:16
DX: I63.9 Cerebral infarction, unspecified (principal); G92 Toxic encephalopathy; R65.10 Systemic inflammatory response syndrome (SIRS) of non-infectious origin without acute organ dysfunction; R56.9 Unspecified convulsions; Z68.42 Body mass index [BMI] 45.0-49.9, adult; E66.01 Morbid (severe) obesity due to excess calories; I25.810 Atherosclerosis of coronary artery bypass graft(s) without angina pectoris; I16.1 Hypertensive emergency; N39.0 Urinary tract infection, site not specified; Z95.1 Presence of aortocoronary bypass graft; E11.9 Type 2 diabetes mellitus without complications; Z88.0 Allergy status to penicillin; Z91.19 Patient's noncompliance with other medical treatment and regimen; Z86.73 Personal history of transient ischemic attack (TIA), and cerebral infarction without residual deficits; Z87.891 Personal history of nicotine dependence; I25.10 Atherosclerotic heart disease of native coronary artery without angina pectoris; Z91.81 History of falling; I63.511 Cerebral infarction due to unspecified occlusion or stenosis of right middle cerebral artery; I99.8 Other disorder of circulatory system; F14.21 Cocaine dependence, in remission; R73.9 Hyperglycemia, unspecified; R79.89 Other specified abnormal findings of blood chemistry; I10 Essential (primary) hypertension
CPT/HCPCS: 36415; 70450; 70553; 71010; 80053; 80061; 80299; 80307; 80329; 81003; 82140; 82248; 82550; 82962; 82977; 83036; 83735; 83880; 84100; 84443; 84484; 84550; 85007; 85025; 85060; 86140; 87081; 87086; 92610; 93005; 93306; 93880; 94760; 95819; 99285; A9585; J1815